=== PATIENT | male | born 1970 | race Two or more races ===

== ENCOUNTER 2021-03-10 07:35 | Outpatient (REF) | payer OTHER, SELFPAY ==
[2021-03-10 08:16] LABS: Basophils Percent Auto 0.1 % (0-2); Eosinophils Percent Auto 0.1 % (0-4); Hematocrit 41.7 % (42-52); Hemoglobin 13.6 g/dl (14.0-18.0); Imm Gran Abs Auto 0.11 X10*3/uL (0.00-0.03); Imm Gran Pct Auto 0.6 % (0.0-0.4); Lymphocytes Percent Auto 17.1 % (20-40); MANUAL DIFF FLAG SCAN; Mean Corpuscular HGB Conc 32.6 g/dl (31.0-36.0); Mean Corpuscular Hemoglobin 26.3 pg (27.0-33.0); Mean Corpuscular Volume 80.5 fL (80-98); Mean Platelet Volume 9.6 fL (9.4-12.4); Monocytes Absolute Auto 1.7 X10*3/uL (0.1-1.2); Monocytes Percent Auto 9.4 % (2-11); Neutrophils Percent Auto 72.7 % (45-73); Platelet Count 347 X10*3/uL (160-400); Red Blood Count 5.18 X10*6/uL (4.60-5.80); Red Cell Distribution Width 12.8 % (11.0-16.0); SCAN SMEAR FLAG 1; White Blood Count 17.8 X10*3/uL (4.8-10.8)
[2021-03-10 08:37] LABS: SLIDE REVIEW VERIFIED
[2021-03-10 08:47] LABS: Creatinine Urine 157.68 mg/dL; Microalbum/Creatinine Ratio Ur 20.2 ug/mg cr
[2021-03-10 08:56] LABS: Alanine Aminotransferase 26 U/L (0-40); Albumin Level 4.5 g/dL (3.5-5.0); Alkaline Phosphatase 160 U/L (39-117); Anion Gap 16 (12-20); Aspartate Amino Transferase 13 U/L (5-37); Bilirubin Total 0.3 mg/dL (0.0-1.0); Blood Urea Nitrogen 10 mg/dL (9-16); Carbon Dioxide 22 mmol/L (22-29); Chloride 104 mmol/L (96-108); Cholesterol 155 mg/dL; Estimated Glomerular Filt Rate > 60; Glucose Fasting 350 mg/dL (60-99); HDL Cholesterol 35 mg/dL; LDL Cholesterol Calculated 79 mg/dl; Potassium 3.9 mmol/L (3.3-5.1); Sodium 138 mmol/L (135-145); Total Protein 7.8 g/dL (6.5-8.0); Triglycerides 209 mg/dL
[2021-03-10 09:01] LABS: Estimated Average Glucose 197 mg/dL; Hemoglobin A1c % 8.5 %
[2021-03-10 09:16] LABS: Thyroid Stimulating Hormone 0.74 uIU/mL (0.32-4.0)
== END 2021-03-10 07:36 | disposition home or self-care (01) ==
LOC: HO.LAB 07:35
PROVIDERS: PCP Internal Medicine; Visit Provider Internal Medicine
DX: Z00.00 Encounter for general adult medical examination without abnormal findings (principal); E03.9 Hypothyroidism, unspecified; E11.9 Type 2 diabetes mellitus without complications
CPT/HCPCS: 36415; 80053; 80061; 82043; 83036; 84443; 85025

== ENCOUNTER 2021-03-17 07:32 | Outpatient (REF) | payer OTHER, SELFPAY ==
[2021-03-17 07:47] LABS: MANUAL DIFF FLAG NO
[2021-03-17 08:06] LABS: Basophils Percent Auto 0.1 % (0-2); Eosinophils Percent Auto 0.1 % (0-4); Hematocrit 44.5 % (42.0-52.0); Hemoglobin 14.4 g/dl (14.0-18.0); Imm Gran Abs Auto 0.21 X10*3/uL (0.00-0.03); Imm Gran Pct Auto 1.1 % (0.0-0.4); Lymphocytes Absolute Auto 3.9 X10*3/uL (1.2-4.9); Lymphocytes Percent Auto 20.5 % (20-40); Mean Corpuscular HGB Conc 32.4 g/dl (31.0-36.0); Mean Corpuscular Hemoglobin 26.2 pg (27.0-33.0); Mean Corpuscular Volume 81.1 fL (80.0-98.0); Mean Platelet Volume 9.6 fL (9.4-12.4); Monocytes Absolute Auto 1.4 X10*3/uL (0.1-1.2); Monocytes Percent Auto 7.6 % (2-11); Neutrophils Absolute Auto 13.22 x10*3/uL (2.0-8.3); Neutrophils Percent Auto 70.6 % (45-73); Platelet Count 391 X10*3/uL (160-400); Red Blood Count 5.49 X10*6/uL (4.60-5.80); Red Cell Distribution Width 12.8 % (11.0-16.0); White Blood Count 18.7 X10*3/uL (4.8-10.8)
[2021-03-17 08:38] LABS: Estimated Average Glucose 209 mg/dL; Hemoglobin A1c % 8.9 %
[2021-03-17 08:44] LABS: Cholesterol 167 mg/dL; HDL Cholesterol 42 mg/dL; LDL Cholesterol Calculated 70 mg/dl; Triglycerides 279 mg/dL
== END 2021-03-17 07:33 | disposition home or self-care (01) ==
LOC: HO.LAB 07:32
PROVIDERS: PCP Internal Medicine; Visit Provider Internal Medicine
DX: Z00.00 Encounter for general adult medical examination without abnormal findings (principal); E11.9 Type 2 diabetes mellitus without complications
CPT/HCPCS: 36415; 80061; 83036; 85025

== ENCOUNTER → 2021-07-16 13:46 | Outpatient (BNVA) | payer OTHER, SELFPAY | PROVIDERS: PCP Internal Medicine; Referring Provider Internal Medicine; Visit Provider Internal Medicine | DX: I63.9 Cerebral infarction, unspecified (principal) | CPT/HCPCS: 93005 ==

== ENCOUNTER 2021-08-13 06:33 | Day surgery (SDC) | payer OTHER, SELFPAY ==
--- NOTE | 2021-08-12 09:25 | HO.ANESPROP2 ---
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 Mother No problems noted. Paternal Grandmother Diabetes Surgical History Surgical History H/O hernia repair H/O left knee surgery History of vasectomy Social History Social History Household Members: Spouse Housing: House Alcohol intake: former Patient Tobacco Use Status: Never used Tobacco e-Cigarette/Vaping Use: Never Used Second Hand Smoke Exposure: No Use of substances other than those prescribed or required for medical reasons: Yes Substance Use Frequency: Occasionally Are you DNR?: No Advance Directives: No Advance Directives Information Provided: Yes Advance Directives on File: No service: No Current occupational status: unemployed Meds Allergies Allergy/AdvReac Type Severity Reaction Status Date / Time No Known Allergies Allergy Verified 08/07/21 12:06 Home Medications Medication Instructions Recorded Confirmed Last Taken Type clopidogrel 75 mg tablet 75 mg PO DAILY 07/16/21 08/07/21 Unknown History Exam Exam Date and Time: August 12, 2021 0925 Pertinent Lab Results Pertinent Lab Results: Laboratory Tests 03/10/21 04/21/21 07:48 13:39 WBC 11.6 H Hgb 13.4 L Hct 41.2 L Plt Count 310 Sodium 138 Potassium 3.9 Chloride 104 Carbon Dioxide 22 BUN 10 Creatinine 1.08 Narrative Narrative: EKG 07/2021 sinus rhythm at 92/Min; no significant ST-T changes and otherwise unremarkable Assessment and Plan Assessment Anesthesia Assessment: Chart Reviewed Documented by User: Theresa Bean MD 08/13/21 07:48 PMFSH Past Medical History Medical History CVA (cerebral vascular accident) Diabetes mellitus Dyslipidemia Migraines Obesity Type 2 diabetes mellitus with obesity Family History Family History Father No problems noted. Mother No problems noted. Paternal Grandmother Diabetes Surgical History Surgical History H/O hernia repair H/O left knee surgery History of vasectomy History of Problems with Anesthesia: No Social History Social History Household Members: Spouse Housing: House Alcohol intake: former Patient Tobacco Use Status: Never used Tobacco e-Cigarette/Vaping Use: Never Used Second Hand Smoke Exposure: No Use of substances other than those prescribed or required for medical reasons: Yes Substance Use Frequency: Occasionally Are you DNR?: No Advance Directives: No Advance Directives Information Provided: Yes Advance Directives on File: No service: No Current occupational status: unemployed Meds Allergies Allergy/AdvReac Type Severity Reaction Status Date / Time No Known Allergies Allergy Verified 08/07/21 12:06 Home Medications Medication Instructions Recorded Confirmed Last Taken Type clopidogrel 75 mg tablet 75 mg PO DAILY 07/16/21 08/07/21 Unknown History Exam Airway Mallampati Class: II TM Dist: >3cm Neck ROM: Full Loose/Missing/Broken Teeth: No Heart: RRR Lungs: CTA Assessment and Plan Assessment Anesthesia Assessment: Anesthesia Plan Discussed Final Anesthetic Review History of Problems with Anesthesia: No NPO: Yes ASA Class: III Final Preanesthetic Review: Meds/Allgs Chart Reviewed, Consent Obtained/Reviewed and Anes Risks/Benef Reviewed Patient Risk: Intermediate Procedure Risk: Low Anesthetic Plan Anesthetic Plan: MAC: Disposition: Standard PACU
[2021-08-13 06:52] VITALS: BMI 30.7
[2021-08-13 06:53] VITALS: BP 137/96; PULSE 75; RESP 16; TEMP 36.3; O2SAT 97
[2021-08-13 07:01] LABS: Glucose, Whole Blood 157 mg/dL (60-115)
[2021-08-13] MEDS: Lactated Ringers 1,000 ML 100 ML IVCONT (07:36)
--- NOTE | 2021-08-13 07:49 | CA_ITS ---
Transesophageal Echocardiogram Patient (Last, First, Middle): Washington Alves, Gender: Male Date of : 1970 Age: 50 Procedure Date: 08/13/2021 Procedure Type: Transesophageal Echocardiogram Location: OR Height: 172.72 cm Weight: 91.63 kg BSA: 2.05 m2 Heart Rate: bpm BP: 137 / 96 mmHg [employer]: SARA Referring MD: Torrey Camarillo MD Symptoms: I63.9 - Cerebral infarction, unspecified Conclusion: ??? There is no evidence of interatrial shunt by color Doppler and contrast. ??? Visualized portions of descending thoracic aorta, arch, show mild plaque. ??? No cardiac source of emboli identified. Findings Left Ventricle Normal left ventricular cavity size. The left ventricular systolic function is normal. The visually estimated ejection fraction is between 55-60%. There is no evidence of regional wall motion abnormalities. Right Ventricle There is normal right ventricular systolic function. Atria There is no evidence of interatrial shunt by color Doppler and contrast. Bubble study was performed x 3; including with valsalva. Left atrial appendage was not visualized well in spite of numerous attempts. Seems somewhat small in size. Based on the available images, no thrombus noted. Aortic Valve There is a normal trileaflet aortic valve. There is no aortic valve stenosis. There is trace (trivial) aortic valve regurgitation. Mitral Valve The mitral valve appears normal. There is trace mitral valve regurgitation. There is no mitral valve stenosis. Pulmonic Valve The pulmonic valve was not well visualized. Tricuspid Valve Normal tricuspid valve structure. There is trace tricuspid valve regurgitation. Great Vessels The aortic annulus, sinuses of valsalva, sino tubular ridge, and asc aorta are normal in size. Visualized portions of descending thoracic aorta, arch show mild plaque. Pericardium/Pleural Prominent epicardial adipose tissue noted. Prior Study Comparison No prior study available for comparison. Updated by Torrey Camarillo on 04:23 PM with Status of Final Torrey Camarillo MD electronically signed on 08/13/2021 4:23:54 PM with status of Final
--- NOTE | 2021-08-13 08:02 | MHC.SHP ---
Pre-Procedural Eval Section A Date of Service: 08/13/21 The patient is an INPATIENT: No Section B Chief Complaint: cerebral infarction Allergies: Allergies Allergy/AdvReac Type Severity Reaction Status Date / Time No Known Allergies Allergy Verified 08/07/21 12:06 Plan I have reviewed the history and physical and performed a pertinent physical examination on my patient. No changes have occurred unless specified.
[2021-08-13 08:46] VITALS: BP 149/79; PULSE 83; RESP 20; TEMP 36.2; O2SAT 98
[2021-08-13 08:51] VITALS: BP 136/85; PULSE 80; RESP 20; O2SAT 95
[2021-08-13 08:56] VITALS: BP 158/87; PULSE 80; RESP 18; O2SAT 95
== END 2021-08-13 09:32 | disposition home or self-care (01) ==
PROVIDERS: PCP Internal Medicine; Visit Provider Internal Medicine
PROC: (CPT 93312; principal; 2021-08-13 08:00)
DX: I63.9 Cerebral infarction, unspecified (principal); E78.5 Hyperlipidemia, unspecified; E11.9 Type 2 diabetes mellitus without complications; E66.9 Obesity, unspecified; Z68.32 Body mass index [BMI] 32.0-32.9, adult; Z79.4 Long term (current) use of insulin; Z79.899 Other long term (current) drug therapy
CPT/HCPCS: 93312; 82947

== ENCOUNTER → 2021-08-17 19:29 | Outpatient (REF) | payer OTHER, SELFPAY | LOC: HO.CARD 19:29 | PROVIDERS: Visit Provider Internal Medicine | DX: Z13.89 Encounter for screening for other disorder (principal) ==

== ENCOUNTER → 2021-08-24 13:37 | Outpatient (REF) | payer OTHER, SELFPAY ==
--- NOTE | 2021-08-24 13:46 | HM_ITS ---
REQUESTING PROVIDER: Dr. Camarillo. REASON FOR TEST: Paroxysmal atrial fibrillation. Hookup date was 08/24/2021 to 09/23/2021. FINDINGS: Patient was hooked up to cardiac event monitor for 30 days. Baseline rhythm was normal. Sinus rhythm with average heart rate varying from 65 beats per minute to 110 beats per minute. There were no episodes of atrial fibrillation noted. There were no significant other ectopy or arrhythmia noted. The patient reported multiple events including chest pain, dizziness, shortness of breath, all of which correlated with sinus rhythm. CONCLUSION: 1. Event monitor reported a baseline normal sinus rhythm with no significant arrhythmias. 2. Patient reported multiple symptoms correlated with sinus rhythm. Omid Beckham MD NRS/MODL / [id number]
== END ==
LOC: HO.CARD 13:37
PROVIDERS: Visit Provider Internal Medicine
DX: I48.0 Paroxysmal atrial fibrillation (principal); I63.9 Cerebral infarction, unspecified
CPT/HCPCS: 93270

== ENCOUNTER 2021-11-04 10:46 | Outpatient (REF) | payer OTHER, SELFPAY ==
--- NOTE | 2021-11-04 09:42 | MHC.SHP ---
Pre-Procedural Eval Section A Date of Service: 11/04/21 The patient is an INPATIENT: No Changes since office visit: Yes Patient answered all questions; No Cold of Flu in the past 2 weeks, No New Medical Problems and No Changes in Medication The History & Physical has been completed within 30 days and I have reviewed it.: Yes Section B Chief Complaint: Cerebral infarction, unspecified Allergies: Allergies Allergy/AdvReac Type Severity Reaction Status Date / Time No Known Allergies Allergy Verified 10/27/21 14:41 Plan I have reviewed the history and physical and performed a pertinent physical examination on my patient. No changes have occurred unless specified.
[2021-11-04 12:00] VITALS: BP 145/85; PULSE 85; RESP 16; TEMP 36.3; O2SAT 98
[2021-11-04 12:03] VITALS: BMI 32.1
--- NOTE | 2021-11-04 12:39 | PM.OP ---
Brief Operative Note Date of Service: 11/04/21 Pre-op diagnosis: Cryptogenic stroke Post-op diagnosis: same Procedure: Implantation of loop recorder Implants: [place] implantable loop recorder, serial number [id number] After obtaining full informed consent patient was brought to the minor surgery suite. Patient was then laid in the supine position on the operating table. Patient's precordial area was then prepped and draped in a sterile fashion. Patient was then given 2% lidocaine with epinephrine intradermally and subcutaneously. A [place] implantable loop recorder was then placed in the subcutaneous space using Seldinger technique. Measured R-wave at 0.41 mV The wound was then closed with help of Steri-Strips and a pressure dressing then applied Surgeon: Omid Beckham MD Anesthesia: local Was an Cable Installation Manager used for this Procedure?: No Estimated blood loss (mL): 4 Pathology: none sent Condition: stable Disposition: same day
[2021-11-04 12:42] VITALS: BP 134/82; PULSE 90; RESP 16; O2SAT 98
== END 2021-11-04 10:47 | disposition home or self-care (01) ==
LOC: HO.MS 10:46
PROVIDERS: Visit Provider Internal Medicine Cardiovascular Disease
PROC: (CPT 33285; principal; 2021-11-04 12:10)
DX: I63.9 Cerebral infarction, unspecified (principal)
CPT/HCPCS: 33285; C1764

== ENCOUNTER 2022-04-26 11:29 | Outpatient (REF) | payer OTHER, SELFPAY ==
[2022-04-26 11:40] LABS: MANUAL DIFF FLAG NO
[2022-04-26 11:45] LABS: Basophils Percent Auto 0.2 % (0-2); Eosinophils Absolute Auto 0.1 X10*3/uL (0.0-0.4); Eosinophils Percent Auto 0.6 % (0-4); Hematocrit 42.3 % (42.0-52.0); Hemoglobin 13.5 g/dl (14.0-18.0); Imm Gran Abs Auto 0.07 X10*3/uL (0.00-0.03); Imm Gran Pct Auto 0.6 % (0.0-0.4); Lymphocytes Absolute Auto 2.7 X10*3/uL (1.2-4.9); Lymphocytes Percent Auto 22.1 % (20-40); Mean Corpuscular HGB Conc 31.9 g/dl (31.0-36.0); Mean Corpuscular Hemoglobin 25.5 pg (27.0-33.0); Mean Corpuscular Volume 79.8 fL (80.0-98.0); Mean Platelet Volume 9.5 fL (9.4-12.4); Monocytes Percent Auto 8.5 % (2-11); Neutrophils Absolute Auto 8.3 x10*3/uL (2.0-8.3); Platelet Count 288 X10*3/uL (160-400); Red Cell Distribution Width 12.8 % (11.0-16.0); White Blood Count 12.2 X10*3/uL (4.8-10.8)
[2022-04-26 12:34] LABS: Alanine Aminotransferase 29 U/L (0-40); Albumin Level 4.2 g/dL (3.5-5.0); Alkaline Phosphatase 181 U/L (39-117); Anion Gap 14 (12-20); Aspartate Amino Transferase 14 U/L (5-37); Bilirubin Total 0.4 mg/dL (0.0-1.0); Blood Urea Nitrogen 15 mg/dL (9-16); Calcium 9.4 mg/dL (8.4-10.2); Carbon Dioxide 23 mmol/L (22-29); Chloride 106 mmol/L (96-108); Estimated Glomerular Filt Rate > 60; Glucose Random 364 mg/dL (60-115); Potassium 4.6 mmol/L (3.3-5.1); Sodium 138 mmol/L (135-145); Total Protein 7.1 g/dL (6.5-8.0)
== END 2022-04-26 11:30 | disposition home or self-care (01) ==
LOC: HO.LAB 11:29
PROVIDERS: PCP Internal Medicine; Visit Provider Internal Medicine
DX: D72.829 Elevated white blood cell count, unspecified (principal)
CPT/HCPCS: 36415; 80053; 85025

== ENCOUNTER → 2022-11-24 23:59 | Outpatient (BNV) | payer OTHER, SELFPAY ==
--- NOTE | 2022-12-06 15:49 | MHC.OFFVIS ---
Intake Intake Visit Reasons: Remote ILR Check- [facility] Allergies No Known Allergies Allergy (Verified 11/19/21 15:29) PFSH Medical History CVA (cerebral vascular accident) Diabetes mellitus Dyslipidemia Migraines Obesity Type 2 diabetes mellitus with obesity Surgical History H/O hernia repair H/O left knee surgery History of vasectomy Family History Father No problems noted. Mother No problems noted. Paternal Grandmother Diabetes Social History Household Members: Spouse Housing: House Alcohol intake: former Patient Tobacco Use Status: Never used Tobacco e-Cigarette/Vaping Use: Never Used Second Hand Smoke Exposure: No service: No Current occupational status: unemployed Office Procedures Cardiac Device Check Cardiac Device Check Details: Date of service 11/24/2022; in the current monitoring period, there is no evidence of atrial fibrillation. No atrial fibrilllation during lifetime. [id number] Cardiac Interrogation, subcut cardiac rhythm monitor Procedure code (CPT) selection complete Assessment & Plan Assessment & Plan (1) Embolic stroke: Code(s): I63.9 - Cerebral infarction, unspecified Coding Level of Care Code Procedure Only Diagnoses Embolic stroke I63.9 CPT Codes Cardiac Device Check - Cardiac Device 16: [id number] Cardiac Interrogation, subcut cardiac rhythm monitor ([id number])
== END ==
PROVIDERS: PCP Internal Medicine; Visit Provider Internal Medicine
DX: I63.9 Cerebral infarction, unspecified (principal); Z95.818 Presence of other cardiac implants and grafts
CPT/HCPCS: 93298

== ENCOUNTER → 2022-12-26 23:59 | Outpatient (BNV) | payer OTHER, SELFPAY ==
--- NOTE | 2023-01-02 18:38 | MHC.OFFVIS ---
Intake Intake Visit Reasons: Remote ILR check- [facility] Allergies No Known Allergies Allergy (Verified 11/19/21 15:29) PFSH Medical History CVA (cerebral vascular accident) Diabetes mellitus Dyslipidemia Migraines Obesity Type 2 diabetes mellitus with obesity Surgical History H/O hernia repair H/O left knee surgery History of vasectomy Family History Father No problems noted. Mother No problems noted. Paternal Grandmother Diabetes Social History Household Members: Spouse Housing: House Alcohol intake: former Patient Tobacco Use Status: Never used Tobacco e-Cigarette/Vaping Use: Never Used Second Hand Smoke Exposure: No service: No Current occupational status: unemployed Office Procedures Cardiac Device Check Cardiac Device Check Details: Date of service 12/26/2022; in the current monitoring period, there is no evidence of atrial fibrillation. No atrial fibrilllation during lifetime. [id number] Cardiac Interrogation, subcut cardiac rhythm monitor Procedure code (CPT) selection complete Assessment & Plan Assessment & Plan (1) Embolic stroke: Code(s): I63.9 - Cerebral infarction, unspecified Coding Level of Care Code Procedure Only Diagnoses Embolic stroke I63.9 CPT Codes Cardiac Device Check - Cardiac Device 16: [id number] Cardiac Interrogation, subcut cardiac rhythm monitor ([id number])
== END ==
PROVIDERS: PCP Internal Medicine; Visit Provider Internal Medicine
DX: I63.9 Cerebral infarction, unspecified (principal)
CPT/HCPCS: 93298

== ENCOUNTER 2023-01-04 14:13 | Outpatient (AMB) | payer OTHER, SELFPAY ==
--- NOTE | 2023-01-04 14:15 | A.OFFPC_ITS ---
Vital Signs 01/04/23 14:17 Height 5 ft 8 in Weight 215 lb 6 oz BMI 32.7 BP 120/70 Blood Pressure Location Lt brachial Position Sitting Pulse 100 Pulse Source Pulse Oximeter Pulse Oximetry (%) 95 Oxygen Delivery Method Room Air Intake Visit Reasons: re-establish care Intake Note: Patient is here today to re-establish care [employer] Internship Required: No Manager Process: Not Required per policy Accompanied by: Self / Same As Patient Allergies No Known Allergies Allergy (Verified 01/04/23 14:16) Medication List - Last Reconciled 01/05/23 by Diego Howell MD atorvastatin 80 mg PO DAILY clopidogrel 75 mg PO DAILY dulaglutide (Trulicity) 0.75 mg (0.5 mL) subcut QWEEK insulin degludec (Tresiba FlexTouch U-100 insulin) 50 units (0.5 mL) subcut BEDTIME miscellaneous medical supply BD Pen Needle [place] U/F 32G X 4 MM omeprazole 20 mg PO BID Tobacco use date assessed: 01/04/23 Dental Screening Dental Screen Date: 01/04/23 Did you have a dental visit in the last 12 months?: No Did you have a dental problem in the last 6 months where you did not have access to dental care?: No Was dental information given to patient?: No HPI re-establish care HPI Details dm hyperlipidemiaand gerd on rx; doing [facility] Medical History CVA (cerebral vascular accident) Diabetes mellitus Dyslipidemia Migraines Obesity Type 2 diabetes mellitus with obesity Surgical History H/O hernia repair H/O left knee surgery History of vasectomy Family History Father No problems noted. Mother No problems noted. Paternal Grandmother Diabetes Social History (Updated 01/04/23 @ 14:19 by NADIYA Agarwal) Household Members: Spouse Housing: House Alcohol intake: current Alcohol intake frequency: a few times a week Patient Tobacco Use Status: Never used Tobacco e-Cigarette/Vaping Use: Never Used Second Hand Smoke Exposure: No service: No Current occupational status: unemployed Cognitive needs: No Hearing needs: No Vision needs: Yes (reading glasses) Questionnaire PHQ-9 Over the last 2 weeks, how often have you been bothered by any of the following problems? 1. Little interest or pleasure in doing things: not at all 2. Feeling down, depressed, or hopeless: not at all 3. Trouble falling or staying asleep, or sleeping too much: not at all 4. Feeling tired or having little energy: not at all 5. Poor appetite or overeating: not at all 6. Feeling bad about yourself - or that you are a failure or have let yourself or your family down: not at all 7. Trouble concentrating on things, such as reading the newspaper or watching television: not at all 8. Moving or speaking so slowly that other people could have noticed. Or the opposite - being so fidgety or restless that you have been moving around a lot more than usual: not at all 9. Thoughts that you would be better off or of hurting yourself in some way: not at all Total score: 0 Depression Screening Interpretation: Negative 23013 - PHQ-9 Billing: Yes Source: Developed by Drs. Vincenzo Velasquez, Sarah Lemus, Broderick Lundy and colleagues, with an educational garfield from [employer]. Thrive Questionnaire Date Thrive assessed: 01/04/23 I am a: Patient What is your living situation today?: I have a steady place to live Within the past 12 months, did the food you bought not last and you didn't have the money to get more?: Never true Within the past 12 months, did you worry whether your food would run out before you got money to buy more?: Never true Do you have trouble paying for medicines?: No Do you have trouble getting transportation to medical appointments?: No Do you have trouble paying your heating and electricity bill?: No Do you have trouble taking care of your child, family member or friend?: No Do you have trouble with day-to-day activities such as bathing, preparing meals, shopping, managing finances, etc.?: No Are you currently unemployed and looking for a job?: No Are you interested in more education?: No Currently or been in a relationship where the following occur: no concerns reported AUDIT C Alcohol Use Questionnaire (AUDIT-C) 1. How often do you have a drink containing alcohol?: Monthly or less 2. How many drinks containing alcohol do you have on a typical day when you are drinking?: 1 or 2 Total Score: 1 Score Reviewed/Action Taken: Yes JONAH-7 AMB Questionnaire JONAH-7 Date JONAH - 7 assessed: 01/04/23 Feeling nervous, anxious, or on edge: 0 = Not at all Not being able to stop or control worryin = Not at all Worrying too much about different things: 0 = Not at all Trouble relaxin = Not at all Being so restless that it is hard to sit still: 0 = Not at all Becoming easily annoyed or irritable: 0 = Not at all Feeling afraid as if something awful might happen: 0 = Not at all Total JONAH-7 score (0-4 normal; 5-9 mild; 10-14 moderate; 15-21 severe): 0 Source: Developed by Drs. Vincenzo Velasquez, Sarah Lemus, Broderick Lundy and colleagues, with an educational garfield from [employer]. JONAH-7 Assessment Billing JONAH-7 Assessment Tool: JONAH-7 Assessment 39983 Review of Systems Const Denies chills, Denies headache(s) and Denies weight loss ENT Reports Normal hearing present and Denies headache(s) Card Denies chest pain, Denies syncope, Denies irregular heart rhythm and Denies dyspnea Resp Denies chest congestion, Denies cough and Denies dyspnea GI Denies abdominal pain, Denies change in stool character, Denies nausea and Denies vomiting Musc Denies deformity and Denies joint swelling Neuro Reports Normal hearing present, Denies syncope and Denies headache(s) Physical exam (Primary Care) Vital Signs: Last Vital Signs Pulse 100 01/04/23 14:17 BP 120/70 01/04/23 14:17 Pulse Ox 95 01/04/23 14:17 Oxygen Delivery Method Room Air 01/04/23 14:17 BMI result Body Mass Index 32.7 obesity BMI Assessment/Plan discussion: High BMI High, discussed plan: lifestyle, weight reduction, dietary and physical activity Tobacco/Smoking Status: Tobacco use Status Tobacco use date assessed 01/04/23 01/04/23 14:21 Patient Tobacco Use Status Never used Tobacco 01/04/23 14:21 e-Cigarette/Vaping Use Never Used 01/04/23 14:21 PHQ-9: PHQ-9 Score PHQ-9: Total score 0 01/04/23 14:21 Depression Screening Interpretation: Negative Thrive Assessment: Date of Thrive Assessment Date Thrive assessed 01/04/23 01/04/23 14:21 Currently or been in a relationship where the following occur: no concerns reported Const General: cooperative, healthy appearing and no acute distress HENMT Head: Yes normocephalic and Yes atraumatic Eyes General: appearance normal, both eyes and all related structures Neck Neck: Yes full ROM and Yes no lymphadenopathy Resp Effort & Inspection: normal respiratory effort Auscultation: clear to auscultation bilaterally Percussion: percussion normal Cardio Jugular venous distension: no JVD Palpation: normal PMI Rate: regular rate Rhythm: regular rhythm Heart sounds: S1 normal heart sound present and S2 normal heart sound present GI Inspection: Yes normal to inspection Palpation (GI): No hepatosplenomegaly present Auscultation: normal bowel sounds Skin Lesions: no lesions Rashes: no rashes Neuro Cranial nerves: Yes Normal hearing present Extrem General: Yes no clubbing, cyanosis or edema Assessment and Plan Assessment & Plan (1) Type 2 diabetes mellitus with obesity: Code(s): E11.69 - Type 2 diabetes mellitus with other specified complication; E66.9 - Obesity, unspecified Plan: stable; do labs (2) Hyperlipidemia: Code(s): E78.5 - Hyperlipidemia, unspecified Plan: stable ;same rx (3) Chronic GERD: Code(s): K21.9 - Gastro-esophageal reflux disease without esophagitis Plan: stable; same rx Orders: Orders Comprehensive [place]. Panel Fast Today N28.9 - Disorder of kidney and ureter, unspecified Hemoglobin A1c Today R73.9 - Hyperglycemia, unspecified Lipid Panel Today E78.5 - Hyperlipidemia, unspecified Thyroid Stimulating Hormone Today E03.9 - Hypothyroidism, unspecified Microalbumin, Random (w Creat) Today E11.69 - Type 2 diabetes mellitus with other specified complication, E66.01 - Morbid (severe) obesity due to excess calories Complete Blood Count Auto Diff Today D64.9 - Anemia, unspecified Medications: Refilled dulaglutide (Trulicity) 0.75 mg (0.5 mL) subcut QWEEK 2 mL 8RF insulin degludec (Tresiba FlexTouch U-100 insulin) 50 units (0.5 mL) subcut BEDTIME 15 mL 0RF Coding Level of Care Code Est Pt Level 4 (29005) Diagnoses Type 2 diabetes mellitus with obesity E11.69; E66.9 Hyperlipidemia E78.5 Chronic GERD K21.9 Additional Codes JONAH-7 Assessment Billing - JONAH-7 Assessment Tool: JONAH-7 Assessment 03619 ([id number])
[2023-01-04 14:17] VITALS: BP 120/70; PULSE 100; O2SAT 95; BMI 32.7
== END 2023-01-04 15:27 | disposition home or self-care (01) ==
PROVIDERS: PCP Internal Medicine; Visit Provider Internal Medicine
DX: E11.69 Type 2 diabetes mellitus with other specified complication (principal); E66.9 Obesity, unspecified; K21.9 Gastro-esophageal reflux disease without esophagitis; Z68.32 Body mass index [BMI] 32.0-32.9, adult; E78.5 Hyperlipidemia, unspecified
CPT/HCPCS: 99214

== ENCOUNTER 2023-01-10 06:01 | Outpatient (REF) | payer OTHER, SELFPAY ==
[2023-01-10 06:21] LABS: MANUAL DIFF FLAG NO
[2023-01-10 08:20] LABS: Basophils Percent Auto 0.3 % (0-2); Eosinophils Absolute Auto 0.1 X10*3/uL (0.0-0.4); Eosinophils Percent Auto 0.9 % (0-4); Hematocrit 42.3 % (42.0-52.0); Hemoglobin 12.9 g/dl (14.0-18.0); Imm Gran Abs Auto 0.07 X10*3/uL (0.00-0.03); Imm Gran Pct Auto 0.6 % (0.0-0.4); Lymphocytes Absolute Auto 3.7 X10*3/uL (1.2-4.9); Lymphocytes Percent Auto 33.4 % (20-40); Mean Corpuscular HGB Conc 30.5 g/dl (31.0-36.0); Mean Corpuscular Hemoglobin 25.3 pg (27.0-33.0); Mean Corpuscular Volume 82.9 fL (80.0-98.0); Mean Platelet Volume 10.2 fL (9.4-12.4); Monocytes Absolute Auto 1.1 X10*3/uL (0.1-1.2); Neutrophils Absolute Auto 6.1 x10*3/uL (2.0-8.3); Neutrophils Percent Auto 54.8 % (45-73); Platelet Count 284 X10*3/uL (160-400)
[2023-01-10 08:26] LABS: Estimated Average Glucose 183 mg/dL
[2023-01-10 09:09] LABS: Alanine Aminotransferase 35 U/L (0-40); Albumin Level 3.9 g/dL (3.5-5.0); Alkaline Phosphatase 133 U/L (39-117); Anion Gap 11 (12-20); Aspartate Amino Transferase 15 U/L (5-37); Bilirubin Total 0.3 mg/dL (0.0-1.0); Blood Urea Nitrogen 15 mg/dL (9-16); Calcium 9.4 mg/dL (8.4-10.2); Carbon Dioxide 25 mmol/L (22-29); Chloride 108 mmol/L (96-108); Cholesterol 151 mg/dL (<200); Estimated Glomerular Filt Rate > 60; Glucose Fasting 214 mg/dL (60-99); HDL Cholesterol 29 mg/dL (>40); LDL Cholesterol Calculated 43 mg/dL (<100); Potassium 4.1 mmol/L (3.3-5.1); Sodium 140 mmol/L (135-145); Thyroid Stimulating Hormone 1.74 uIU/mL (0.32-4.0); Total Protein 7.3 g/dL (6.5-8.0); Triglycerides 396 mg/dL (<150)
[2023-01-10 11:04] LABS: Creatinine Urine 230.58 mg/dL; Microalbum/Creatinine Ratio Ur 4.7 ug/mg cr (<30)
== END 2023-01-10 06:02 | disposition home or self-care (01) ==
LOC: HO.LAB 06:01
PROVIDERS: PCP Internal Medicine; Visit Provider Internal Medicine
DX: E11.69 Type 2 diabetes mellitus with other specified complication (principal); E11.65 Type 2 diabetes mellitus with hyperglycemia; E03.9 Hypothyroidism, unspecified; E66.01 Morbid (severe) obesity due to excess calories; E78.5 Hyperlipidemia, unspecified; D64.9 Anemia, unspecified; N28.9 Disorder of kidney and ureter, unspecified
CPT/HCPCS: 36415; 80053; 80061; 82043; 83036; 84443; 85025

== ENCOUNTER → 2023-01-25 23:59 | Outpatient (BNV) | payer OTHER, SELFPAY ==
--- NOTE | 2023-01-29 14:26 | MHC.OFFVIS ---
Intake Intake Visit Reasons: Remote ILR Check- [facility] Allergies No Known Allergies Allergy (Verified 01/04/23 14:16) PFS Medical History CVA (cerebral vascular accident) Diabetes mellitus Dyslipidemia Migraines Obesity Type 2 diabetes mellitus with obesity Surgical History H/O hernia repair H/O left knee surgery History of vasectomy Family History Father No problems noted. Mother No problems noted. Paternal Grandmother Diabetes Social History (Updated 01/04/23 @ 14:19 by NADIYA Agarwal) Household Members: Spouse Housing: House Alcohol intake: current Alcohol intake frequency: a few times a week Patient Tobacco Use Status: Never used Tobacco e-Cigarette/Vaping Use: Never Used Second Hand Smoke Exposure: No service: No Current occupational status: unemployed Cognitive needs: No Hearing needs: No Vision needs: Yes (reading glasses) Office Procedures Cardiac Device Check Cardiac Device Check Details: Date of service 01/25/2023; in the current monitoring period, there is no evidence of atrial fibrillation. No atrial fibrilllation during lifetime. [id number] Cardiac Interrogation, subcut cardiac rhythm monitor Procedure code (CPT) selection complete Assessment & Plan Assessment & Plan (1) Embolic stroke: Code(s): I63.9 - Cerebral infarction, unspecified Coding Level of Care Code Procedure Only Diagnoses Embolic stroke I63.9 CPT Codes Cardiac Device Check - Cardiac Device 16: [id number] Cardiac Interrogation, subcut cardiac rhythm monitor ([id number])
== END ==
PROVIDERS: PCP Internal Medicine; Visit Provider Internal Medicine
DX: I63.9 Cerebral infarction, unspecified (principal)
CPT/HCPCS: 93298

== ENCOUNTER 2023-05-17 13:02 | Outpatient (AMB) | payer OTHER, SELFPAY ==
[2023-05-17 13:31] VITALS: BP 110/60; PULSE 83
--- NOTE | 2023-05-17 13:31 | A.OFFVIS_ITS ---
Intake Vital Signs 05/17/23 13:31 Height 5 ft 8 in BP 110/60 Blood Pressure Location Lt brachial Position Sitting Pulse 83 Pulse Source Pulse Oximeter Intake Visit Reasons: follow up w/ device check Intake Note: f/up pt its feeling fine Customer Engagement Analyst Required: No Accompanied by: Spouse Allergies No Known Allergies Allergy (Verified 01/04/23 14:16) Medication List - Last Reconciled 05/17/23 by Michelle Salinas NP-C atorvastatin 80 mg PO DAILY clopidogrel 75 mg PO DAILY dulaglutide (Trulicity) 0.75 mg (0.5 mL) subcut QWEEK insulin degludec (Tresiba FlexTouch U-100 insulin) 50 units (0.5 mL) subcut BEDTIME miscellaneous medical supply BD Pen Needle [place] U/F 32G X 4 MM omeprazole 20 mg PO BID HPI follow up w/ device check HPI Details [place] is a 52-year-old male with past medical history of diabetes, obesity, CVA who has ILR iin place to evaluate for presence of AFib, who now presents for follow-up. Today he reports that he has been doing well since his last visit. He has no concerning symptoms. On 1 day recently he bit his tongue and his was fearful that this was a sign of another stroke however he had no neurological symptoms of vision changes, speech disturbance, movement or sensory disturbances of his extremities. He denies having heart palpitations. ILR moves around a little and causes discomfort at times. No other chest discomfort, no shortness of breath, presyncope, syncope, PND, orthopnea or edema. He reports good activity tolerance. Takes all meds as directed. [facility] Medical History Dyslipidemia Migraines Obesity Type 2 diabetes mellitus with obesity CVA (cerebral vascular accident) Diabetes mellitus Surgical History H/O left knee surgery H/O hernia repair History of vasectomy Family History Father No problems noted. Mother No problems noted. Paternal Grandmother Diabetes Social History Household Members: Spouse Housing: House Alcohol intake: current Alcohol intake frequency: a few times a week Patient Tobacco Use Status: Never used Tobacco e-Cigarette/Vaping Use: Never Used Second Hand Smoke Exposure: No service: No Current occupational status: unemployed Cognitive needs: No Hearing needs: No Vision needs: Yes (reading glasses) Review of Systems Const All systems reviewed & are unremarkable except as noted in HPI and below Denies chills, Denies fever(s), Denies frequent falls, Denies weakness, Denies weight gain and Denies weight loss ENT Denies dizziness Card Denies chest pain, Denies leg edema, Denies lightheadedness, Denies palpitations, Denies dyspnea and Denies dyspnea on exertion Resp Reports cough, Denies dyspnea and Denies dyspnea on exertion GI Denies hematochezia Musc Denies abnormal gait, Denies muscle weakness, Denies numbness, Denies radiating pain into limb and Denies tingling Neuro Denies abnormal gait, Denies dizziness, Denies frequent falls, Denies numbness, Denies tingling and Denies weakness Endo Denies palpitations Physical Exam Vital Signs: Last Vital Signs Pulse 83 05/17/23 13:31 BP 110/60 05/17/23 13:31 Const General: cooperative, healthy appearing, comfortable and no acute distress Orientation/consciousness: patient oriented x3 Neck Neck: Yes normal visual inspection Resp Effort & Inspection: normal respiratory effort Auscultation: clear to auscultation bilaterally, no crackles, no rales, no rhonchi and no wheezes Cardio Jugular venous distension: no JVD Rate: regular rate Rhythm: regular rhythm Heart sounds: S1 normal heart sound present, S2 normal heart sound present, no murmurs and no rubs Neuro General: patient oriented x3 Extrem General: Yes normal to inspection, No no pedal edema and No calf tenderness Psych Appearance: grossly normal Mental Status: mental status grossly normal Speech and movement: Normal speech and movement present Office Procedures Cardiac Device Check Cardiac Device Check Details: I will our office interrogation done today, [place] device, battery getting low, 1 episode recorded as AF however when reviewed with specialist at [facility] [employer] for jot devices confirmed it is not AFib, undersensing noted. No other alerts. [id number] Cardiac Device Check, subcut cardiac rhythm monitor Procedure code (CPT) selection complete Assessment & Plan Assessment & Plan (1) CVA (cerebral vascular accident): Comment: 2018 Code(s): I63.9 - Cerebral infarction, unspecified Plan: History of CVA 2018. Evaluated at [facility] 07/2020 for difficulty speaking. CTA of the brain and neck reported as being okay. A 48 hour Holter monitor done at [facility] showed only sinus rhythm. MRI of the brain July 2020 showed chronic left frontal and parietal infarcts with acute left basal ganglia infarct. He has been followed by Neurology and is on Plavix. He was seen by Dr. Camarillo 07/2021 and then underwent a transesophageal echo on 08/13 showing EF 55-60%, no regional wall motion abnormalities, bubble study showing no shunt and no thrombus in the left atrial appendage. No cardiac source of the emboli noted. He underwent anr ILR placement on 11/04/2021. Office interrogation today and remote monitoring shows no evidence of true atrial fibrillation. To AFib alerts have come through however strips reviewed b y myself and urban planner as well as [place] ILR specialists confirm no true AFib. Reviewed this with patient. Will continue to monitor device remotely. Will arrange for office follow-up in 6 months. Battery is getting close to the TIA. (2) Implantable loop recorder present: Comment: 11/04/[address] Beckham, left chest Code(s): Z95.818 - Presence of other cardiac implants and grafts Plan: As above (3) Embolic stroke: Code(s): I63.9 - Cerebral infarction, unspecified Plan: As above Plan Time spent on chart review, documentation, interview and assessment Coding Level of Care Code Est Pt Level 3 (09519) Diagnoses CVA (cerebral vascular accident) I63.9 Implantable loop recorder present Z95.818 Embolic stroke I63.9 CPT Codes Cardiac Device Check - Cardiac Device 7: [id number] Cardiac Device Check, subcut cardiac rhythm monitor ([id number]) Time Spent (min) 20
== END 2023-05-17 14:05 | disposition home or self-care (01) ==
PROVIDERS: PCP Internal Medicine; Visit Provider Nurse Practitioner Family
DX: I63.9 Cerebral infarction, unspecified (principal); Z95.818 Presence of other cardiac implants and grafts
CPT/HCPCS: 93285; 99213

== ENCOUNTER → 2023-05-17 13:02 | Outpatient (BNVA) | payer OTHER, SELFPAY | PROVIDERS: PCP Internal Medicine; Visit Provider Nurse Practitioner Family ==

== ENCOUNTER → 2023-05-29 23:59 | Outpatient (BNV) | payer OTHER, SELFPAY ==
--- NOTE | 2023-05-30 19:39 | MHC.OFFVIS ---
Intake Intake Visit Reasons: Remote ILR Check- [facility] Allergies No Known Allergies Allergy (Verified 01/04/23 14:16) PFSH Medical History Dyslipidemia Migraines Obesity Type 2 diabetes mellitus with obesity CVA (cerebral vascular accident) Diabetes mellitus Surgical History H/O left knee surgery H/O hernia repair History of vasectomy Family History Father No problems noted. Mother No problems noted. Paternal Grandmother Diabetes Social History Household Members: Spouse Housing: House Alcohol intake: current Alcohol intake frequency: a few times a week Patient Tobacco Use Status: Never used Tobacco e-Cigarette/Vaping Use: Never Used Second Hand Smoke Exposure: No service: No Current occupational status: unemployed Cognitive needs: No Hearing needs: No Vision needs: Yes (reading glasses) Office Procedures Cardiac Device Check Cardiac Device Check Details: Date of service 05/29/2023; in the current monitoring period, there is no evidence of atrial fibrillation. [id number] Cardiac Interrogation, subcut cardiac rhythm monitor Procedure code (CPT) selection complete Assessment & Plan Assessment & Plan (1) Embolic stroke: Code(s): I63.9 - Cerebral infarction, unspecified Plan x Coding Level of Care Code Procedure Only Diagnoses Embolic stroke I63.9 CPT Codes Cardiac Device Check - Cardiac Device 16: [id number] Cardiac Interrogation, subcut cardiac rhythm monitor ([id number])
== END ==
PROVIDERS: PCP Internal Medicine; Visit Provider Internal Medicine
DX: I63.9 Cerebral infarction, unspecified (principal); Z95.818 Presence of other cardiac implants and grafts
CPT/HCPCS: 93298

== ENCOUNTER 2023-05-31 13:32 | Outpatient (AMB) | payer OTHER, SELFPAY ==
[2023-05-31 13:34] VITALS: BP 136/86; PULSE 120; O2SAT 96; BMI 32.5
--- NOTE | 2023-05-31 13:34 | MHC.PC.OV ---
Vital Signs 05/31/23 13:34 Height 5 ft 8 in Weight 214 lb BMI 32.5 BP 136/86 Blood Pressure Location Lt brachial Position Sitting Pulse 120 H Pulse Source Pulse Oximeter Pulse Oximetry (%) 96 Oxygen Delivery Method Room Air Intake Visit Reasons: Urgent Care F/U- [facility] Fulfillment Coordinator Required: No Reserve Officer: Not Required per policy Accompanied by: Self / Same As Patient Allergies No Known Allergies Allergy (Verified 01/04/23 14:16) Medication List - Last Reconciled 06/01/23 by Diego Howell MD atorvastatin 80 mg PO DAILY clopidogrel 75 mg PO DAILY dulaglutide (Trulicity) 0.75 mg (0.5 mL) subcut QWEEK insulin degludec (Tresiba FlexTouch U-100 insulin) 50 units (0.5 mL) subcut BEDTIME miscellaneous medical supply BD Pen Needle [place] U/F 32G X 4 MM omeprazole 20 mg PO BID Tobacco use date assessed: 05/31/23 Dental Screening Dental Screen Date: 05/31/23 Did you have a dental visit in the last 12 months?: No Did you have a dental problem in the last 6 months where you did not have access to dental care?: No Was dental information given to patient?: Patient has dentist HPI Urgent Care F/U- [facility] HPI Details injured lower back in an accident; went to walk-in; xr neg PFSH Medical History Dyslipidemia Migraines Obesity Type 2 diabetes mellitus with obesity CVA (cerebral vascular accident) Diabetes mellitus Surgical History H/O left knee surgery H/O hernia repair History of vasectomy Family History Father No problems noted. Mother No problems noted. Paternal Grandmother Diabetes Social History Household Members: Spouse Housing: House Alcohol intake: current Alcohol intake frequency: a few times a week Patient Tobacco Use Status: Never used Tobacco e-Cigarette/Vaping Use: Never Used Second Hand Smoke Exposure: No service: No Current occupational status: unemployed Cognitive needs: No Hearing needs: No Vision needs: Yes (reading glasses) Questionnaire Thrive Questionnaire Date Thrive assessed: 01/04/23 JONAH-7 AMB Questionnaire JONAH-7 Date JONAH - 7 assessed: 01/04/23 Source: Developed by Drs. Vincenzo Velasquez, Sarah Lemus, Broderick Lundy and colleagues, with an educational garfield from [employer]. Review of Systems Const Denies chills, Denies headache(s) and Denies weight loss ENT Denies headache(s) Card Denies chest pain, Denies syncope, Denies irregular heart rhythm and Denies dyspnea Resp Denies chest congestion, Denies cough and Denies dyspnea GI Denies abdominal pain, Denies change in stool character, Denies nausea and Denies vomiting Musc Denies deformity and Denies joint swelling Neuro Denies syncope and Denies headache(s) Physical exam (Primary Care) Vital Signs: Last Vital Signs Pulse 120 H 05/31/23 13:34 BP 136/86 05/31/23 13:34 Pulse Ox 96 05/31/23 13:34 Oxygen Delivery Method Room Air 05/31/23 13:34 BMI result Body Mass Index 32.5 Tobacco/Smoking Status: Tobacco use Status Tobacco use date assessed 05/31/23 05/31/23 13:35 Patient Tobacco Use Status Never used Tobacco 05/31/23 13:35 e-Cigarette/Vaping Use Never Used 05/31/23 13:35 Thrive Assessment: Date of Thrive Assessment Date Thrive assessed 01/04/23 05/31/23 13:35 Const General: cooperative, comfortable, no acute distress and alert Neck Neck: Yes no lymphadenopathy Thyroid: Thyroid normal Resp Effort & Inspection: normal respiratory effort Auscultation: clear to auscultation bilaterally Percussion: percussion normal Cardio Jugular venous distension: no JVD Palpation: normal PMI Rate: regular rate Rhythm: regular rhythm Heart sounds: S1 normal heart sound present and S2 normal heart sound present GI Inspection: Yes normal to inspection Palpation (GI): No hepatosplenomegaly present Skin General skin exam: no rashes or lesions noted Extrem General: Yes no clubbing, cyanosis or edema Results AMB Hemoglobin A1c AMB Hemoglobin A1c 10.6 % Last Edit by NADIYA Glass on 05/31/23 13:49 Results Reviewed Results Reviewed: Laboratory Last Values Hgb A1c (Clinic) 10.6 % (4.0-6.0) H 05/31/23 13:37 Assessment and Plan Assessment & Plan (1) Low back pain: Code(s): M54.50 - Low back pain, unspecified Plan: should improve with conservative care; may need some oow notes Orders: Orders AMB Hemoglobin A1c 05/31/23 E11.69 - Type 2 diabetes mellitus with other specified complication, E66.9 - Obesity, unspecified Coding Level of Care Code Est Pt Level 3 (94511) Diagnoses Low back pain M54.50
== END 2023-05-31 13:53 | disposition home or self-care (01) ==
PROVIDERS: PCP Internal Medicine; Visit Provider Internal Medicine
DX: E11.69 Type 2 diabetes mellitus with other specified complication (principal); E66.9 Obesity, unspecified; Z68.32 Body mass index [BMI] 32.0-32.9, adult
CPT/HCPCS: 83036; 99213

== ENCOUNTER → 2023-06-29 23:59 | Outpatient (BNV) | payer OTHER, SELFPAY ==
--- NOTE | 2023-06-29 11:37 | MHC.OFFVIS ---
Intake Intake Visit Reasons: Remote ILR Check- [facility] Allergies No Known Allergies Allergy (Verified 01/04/23 14:16) PFSH Medical History Dyslipidemia Migraines Obesity Type 2 diabetes mellitus with obesity CVA (cerebral vascular accident) Diabetes mellitus Surgical History H/O left knee surgery H/O hernia repair History of vasectomy Family History Father No problems noted. Mother No problems noted. Paternal Grandmother Diabetes Social History Household Members: Spouse Housing: House Alcohol intake: current Alcohol intake frequency: a few times a week Patient Tobacco Use Status: Never used Tobacco e-Cigarette/Vaping Use: Never Used Second Hand Smoke Exposure: No service: No Current occupational status: unemployed Cognitive needs: No Hearing needs: No Vision needs: Yes (reading glasses) Office Procedures Cardiac Device Check Cardiac Device Check Details: Date of service 06/29/2023; in the current monitoring period, there is no evidence of atrial fibrillation. [id number] Cardiac Interrogation, subcut cardiac rhythm monitor Procedure code (CPT) selection complete Assessment & Plan Assessment & Plan (1) Embolic stroke: Code(s): I63.9 - Cerebral infarction, unspecified Plan x Coding Level of Care Code Procedure Only Diagnoses Embolic stroke I63.9 CPT Codes Cardiac Device Check - Cardiac Device 16: [id number] Cardiac Interrogation, subcut cardiac rhythm monitor ([id number])
== END ==
PROVIDERS: PCP Internal Medicine; Visit Provider Internal Medicine
DX: I63.9 Cerebral infarction, unspecified (principal); Z95.818 Presence of other cardiac implants and grafts
CPT/HCPCS: 93298

== ENCOUNTER 2023-07-04 09:30 | Outpatient (AMB) | payer OTHER, SELFPAY ==
[2023-07-04 11:05] VITALS: BP 140/82; PULSE 92; TEMP 36.1; O2SAT 97; BMI 32.1
--- NOTE | 2023-07-04 11:05 | AM.OFFWIN_ITS ---
Intake Vital Signs 07/04/23 11:05 Height 5 ft 8 in Weight 211 lb BMI 32.1 BP 140/82 H Blood Pressure Location Lt brachial Position Sitting Pulse 92 Pulse Source Pulse Oximeter Temp 97.0 F Temp Source Temporal Artery Scan Pulse Oximetry (%) 97 Oxygen Delivery Method Room Air Intake Visit Reasons: EP ?Flu [phone] Intake Note: pt is here today for flu started tuesday Patient Tobacco Use Status: Never used Tobacco Allergies No Known Allergies Allergy (Verified 07/04/23 11:05) Do you need a note to return to daycare/school/sports/work: Yes HPI HPI Comments History of Present Illness Details Patient presents to the walk-in today for sick visit Complaining of cough, congestion, fever and body aches for last 3 days Denies chest pain, shortness of breath, syncope, weakness, dizziness, palpitations Has been using TheraFlu with improvement in his symptoms Negative COVID test at home Requesting work note today [facility] Medical History Dyslipidemia Migraines Obesity Type 2 diabetes mellitus with obesity CVA (cerebral vascular accident) Diabetes mellitus Surgical History H/O left knee surgery H/O hernia repair History of vasectomy Family History Father No problems noted. Mother No problems noted. Paternal Grandmother Diabetes Social History Household Members: Spouse Housing: House Alcohol intake: current Alcohol intake frequency: a few times a week Patient Tobacco Use Status: Never used Tobacco e-Cigarette/Vaping Use: Never Used Second Hand Smoke Exposure: No service: No Current occupational status: unemployed Cognitive needs: No Hearing needs: No Vision needs: Yes (reading glasses) Review of Systems Const All systems reviewed & are unremarkable except as noted in HPI and below Physical Exam Vital Signs: Last Vital Signs Temp 97.0 F 07/04/23 11:05 Pulse 92 07/04/23 11:05 BP 140/82 H 07/04/23 11:05 Pulse Ox 97 07/04/23 11:05 Oxygen Delivery Method Room Air 07/04/23 11:05 BMI result Body Mass Index 32.1 General: awake, alert, oriented. Answers questions appropriately. Fully engaged in examination. Skin: warm, dry, intact HEENT: TMs intact bilaterally, no redness. Posterior pharynx without erythema or exudate. Sclera without icterus or injection. Cardiac: External chest normal in appearance. Respiratory: +cough. LSCTAB. Abdomen: without gross distension. Neurological: Oriented to person, place, time and situation. Thought process intact. Psychiatric: Appropriate mood and affect. Good judgment and insight. Assessment & Plan Assessment & Plan (1) URI (upper respiratory infection): Code(s): J06.9 - Acute upper respiratory infection, unspecified Plan URI, no abx warranted. SARS-CoV2/FLU/RSV swab collected, results pending. Patient aware he will be called with results. Benzonatate 100mg po bid as needed Rest, drink plenty of fluids, tylenol or motrin as needed. Follow up with pcp or in clinic for any new or worsening symptoms. Go to ER for shortness of breath, chest pain, palpitations, weakness, dizziness. Orders: Orders SARS-CoV2/FLU/RSV Today J06.9 - Acute upper respiratory infection, unspecified Medications: New benzonatate 100 mg PO BID PRN 20 caps 0RF cough Coding Level of Care Code Est Pt Level 3 (16260) Diagnoses URI (upper respiratory infection) J06.9
== END 2023-07-04 12:20 | disposition home or self-care (01) ==
PROVIDERS: PCP Internal Medicine; Visit Provider Registered Nurse Emergency
DX: J06.9 Acute upper respiratory infection, unspecified (principal)
CPT/HCPCS: 99213

== ENCOUNTER 2023-07-04 14:07 | Outpatient (REF) | payer OTHER, SELFPAY ==
[2023-07-04 14:49] LABS: Influenza A PCR POSITIVE (Negative); Influenza B PCR NEGATIVE (Negative); Resp Syncy Virus RNA Qual PCR NEGATIVE (Negative); SARS COV2 PCR INHOUSE NEGATIVE (Negative)
== END 2023-07-04 14:08 | disposition home or self-care (01) ==
LOC: HO.LNP 14:07
PROVIDERS: Visit Provider Registered Nurse Emergency
DX: Z11.52 Encounter for screening for COVID-19 (principal); Z20.822 Contact with and (suspected) exposure to COVID-19; J06.9 Acute upper respiratory infection, unspecified
CPT/HCPCS: 0241U

== ENCOUNTER → 2023-07-30 23:59 | Outpatient (BNV) | payer OTHER, SELFPAY ==
--- NOTE | 2023-08-07 18:53 | MHC.OFFVIS ---
Intake Intake Visit Reasons: Remote ILR Check- [facility] Allergies No Known Allergies Allergy (Verified 07/04/23 11:05) PFSH Medical History Dyslipidemia Migraines Obesity Type 2 diabetes mellitus with obesity CVA (cerebral vascular accident) Diabetes mellitus Surgical History H/O left knee surgery H/O hernia repair History of vasectomy Family History Father No problems noted. Mother No problems noted. Paternal Grandmother Diabetes Social History Household Members: Spouse Housing: House Alcohol intake: current Alcohol intake frequency: a few times a week Patient Tobacco Use Status: Never used Tobacco e-Cigarette/Vaping Use: Never Used Second Hand Smoke Exposure: No service: No Current occupational status: unemployed Cognitive needs: No Hearing needs: No Vision needs: Yes (reading glasses) Office Procedures Cardiac Device Check Cardiac Device Check Details: Date of service 07/30/2023; in the current monitoring period, there is no evidence of atrial fibrillation. [id number] Cardiac Interrogation, subcut cardiac rhythm monitor Procedure code (CPT) selection complete Assessment & Plan Assessment & Plan (1) Embolic stroke: Code(s): I63.9 - Cerebral infarction, unspecified Plan x Coding Level of Care Code Procedure Only Diagnoses Embolic stroke I63.9 CPT Codes Cardiac Device Check - Cardiac Device 16: [id number] Cardiac Interrogation, subcut cardiac rhythm monitor ([id number])
== END ==
PROVIDERS: PCP Internal Medicine; Visit Provider Internal Medicine
DX: I63.9 Cerebral infarction, unspecified (principal)
CPT/HCPCS: 93298

== ENCOUNTER → 2023-09-30 23:59 | Outpatient (BNV) | payer OTHER, SELFPAY ==
--- NOTE | 2023-10-16 14:19 | MHC.OFFVIS ---
Intake Visit Reasons: Remote ILR Check- [facility] Allergies No Known Allergies Allergy (Verified 07/04/23 11:05) PFSH Medical History Dyslipidemia Migraines Obesity Type 2 diabetes mellitus with obesity CVA (cerebral vascular accident) Diabetes mellitus Surgical History H/O left knee surgery H/O hernia repair History of vasectomy Family History Father No problems noted. Mother No problems noted. Paternal Grandmother Diabetes Social History Household Members: Spouse Housing: House Alcohol intake: current Alcohol intake frequency: a few times a week Patient Tobacco Use Status: Never used Tobacco e-Cigarette/Vaping Use: Never Used Second Hand Smoke Exposure: No service: No Current occupational status: unemployed Cognitive needs: No Hearing needs: No Vision needs: Yes (reading glasses) Office Procedures Cardiac Device Check Cardiac Device Check Details: Date of service 09/30/2023; in the current monitoring period, there is no evidence of atrial fibrillation. [id number] Cardiac Interrogation, subcut cardiac rhythm monitor Procedure code (CPT) selection complete Assessment & Plan Assessment & Plan (1) Embolic stroke: Code(s): I63.9 - Cerebral infarction, unspecified Category: Medical Plan x Coding Level of Care Code Procedure Only Diagnoses Embolic stroke I63.9 CPT Codes Cardiac Device Check - Cardiac Device 16: [id number] Cardiac Interrogation, subcut cardiac rhythm monitor ([id number])
== END ==
PROVIDERS: PCP Internal Medicine; Visit Provider Internal Medicine
DX: I63.9 Cerebral infarction, unspecified (principal); Z95.818 Presence of other cardiac implants and grafts
CPT/HCPCS: 93298

== ENCOUNTER → 2023-10-31 23:59 | Outpatient (BNV) | payer OTHER, SELFPAY ==
--- NOTE | 2023-11-09 13:47 | MHC.OFFVIS ---
Intake Visit Reasons: Remote ILR Check- [facility] Allergies No Known Allergies Allergy (Verified 07/04/23 11:05) PFSH Medical History Dyslipidemia Migraines Obesity Type 2 diabetes mellitus with obesity CVA (cerebral vascular accident) Diabetes mellitus Surgical History H/O left knee surgery H/O hernia repair History of vasectomy Family History Father No problems noted. Mother No problems noted. Paternal Grandmother Diabetes Social History Household Members: Spouse Housing: House Alcohol intake: current Alcohol intake frequency: a few times a week Patient Tobacco Use Status: Never used Tobacco e-Cigarette/Vaping Use: Never Used Second Hand Smoke Exposure: No service: No Current occupational status: unemployed Cognitive needs: No Hearing needs: No Vision needs: Yes (reading glasses) Office Procedures Cardiac Device Check Cardiac Device Check Details: Date of service 10/31/2023; in the current monitoring period, there is no evidence of atrial fibrillation. [id number] Cardiac Interrogation, subcut cardiac rhythm monitor Procedure code (CPT) selection complete Assessment & Plan Assessment & Plan (1) Embolic stroke: Code(s): I63.9 - Cerebral infarction, unspecified Category: Medical Plan x Coding Level of Care Code Procedure Only Diagnoses Embolic stroke I63.9 CPT Codes Cardiac Device Check - Cardiac Device 16: [id number] Cardiac Interrogation, subcut cardiac rhythm monitor ([id number])
== END ==
PROVIDERS: PCP Internal Medicine; Visit Provider Internal Medicine
DX: I63.9 Cerebral infarction, unspecified (principal); Z95.818 Presence of other cardiac implants and grafts
CPT/HCPCS: 93298

== ENCOUNTER 2023-11-14 13:23 | Outpatient (AMB) | payer OTHER, SELFPAY ==
[2023-11-14 13:32] VITALS: BP 126/78; PULSE 90; BMI 32.2
--- NOTE | 2023-11-14 13:32 | A.OFFVIS_ITS ---
Vital Signs 11/14/23 13:32 Height 5 ft 8 in Weight 212 lb 1.355 oz BMI 32.2 BP 126/78 Blood Pressure Location Lt brachial Position Sitting Pulse 90 Intake Visit Reasons: 6 mth f/up Intake Note: 6mo f/u Community Nurse Required: No Accompanied by: Spouse Allergies No Known Allergies Allergy (Verified 07/04/23 11:05) Medication List - Last Reconciled 11/14/23 by Michelle Salinas NP-C atorvastatin 80 mg PO DAILY benzonatate 100 mg PO BID PRN clopidogrel 75 mg PO DAILY dulaglutide (Trulicity) 0.75 mg (0.5 mL) subcut QWEEK insulin degludec (Tresiba FlexTouch U-100 insulin) 50 units (0.5 mL) subcut BEDTIME miscellaneous medical supply BD Pen Needle [place] U/F 32G X 4 MM once per day omeprazole 20 mg PO BID HPI HPI 6 mth f/up: Details: [place] is a 53-year-old male with past medical history of diabetes, obesity, CVA who has ILR iin place to evaluate for presence of AFib, who now presents for follow-up. Today he reports that he has been doing well since his last visit in May. He has no concerning symptoms. He has not had any new neurological symptoms of vision changes, speech disturbance, movement or sensory disturbances of his extremities. From his prior CVA he will have some slurred speech at times when he is tired. He denies having heart palpitations. ILR site is sore at times when he lays on his side. No other chest discomfort, no shortness of breath, presyncope, syncope, PND, orthopnea or edema. He reports good activity tolerance. Takes all meds as directed. Significant other present. [facility] Medical History Dyslipidemia Migraines Obesity Type 2 diabetes mellitus with obesity CVA (cerebral vascular accident) Diabetes mellitus Surgical History H/O left knee surgery H/O hernia repair History of vasectomy Family History Father No problems noted. Mother No problems noted. Paternal Grandmother Diabetes Social History Household Members: Spouse Housing: House Alcohol intake: current Alcohol intake frequency: a few times a week Patient Tobacco Use Status: Never used Tobacco e-Cigarette/Vaping Use: Never Used Second Hand Smoke Exposure: No service: No Current occupational status: unemployed Cognitive needs: No Hearing needs: No Vision needs: Yes (reading glasses) Review of Systems Const All systems reviewed & are unremarkable except as noted in HPI and below Denies chills, Denies fatigue, Denies fever(s), Denies frequent falls, Denies weakness, Denies weight gain and Denies weight loss ENT Denies dizziness Card Denies chest pain, Denies leg edema, Denies lightheadedness, Denies palpitations, Denies dyspnea on exertion and Denies orthopnea Resp Denies cough and Denies dyspnea on exertion GI Denies hematochezia and Denies change in stool character Musc Denies abnormal gait, Denies muscle weakness, Denies numbness, Denies radiating pain into limb and Denies tingling Neuro Denies abnormal gait, Denies dizziness, Denies frequent falls, Denies numbness, Denies tingling and Denies weakness Endo Denies fatigue and Denies palpitations Physical Exam Vital Signs: Last Vital Signs Pulse 90 11/14/23 13:32 BP 126/78 11/14/23 13:32 BMI result Body Mass Index 32.2 Const General: cooperative, healthy appearing, comfortable and no acute distress Orientation/consciousness: patient oriented x3 Neck Neck: Yes normal visual inspection Resp Effort & Inspection: normal respiratory effort Auscultation: clear to auscultation bilaterally, no crackles, no rales, no rhonchi and no wheezes Cardio Jugular venous distension: no JVD Rate: regular rate Rhythm: regular rhythm Heart sounds: S1 normal heart sound present, S2 normal heart sound present, no murmurs and no rubs Neuro General: patient oriented x3 Extrem General: Yes normal to inspection, No no pedal edema and No calf tenderness Psych Appearance: grossly normal Mental Status: mental status grossly normal Speech and movement: Normal speech and movement present Office Procedures Cardiac Device Check Cardiac Device Check Details: [facility] interrogation today shows battery nearing end of life, no AFib, tachy episodes Crispin or pauses. [id number] Cardiac Interrogation, subcut cardiac rhythm monitor Procedure code (CPT) selection complete EKG Details: Today, read by me, normal sinus rhythm, left axis deviation, minimal voltage criteria for LVH, rate 90, QTC 428 millisecond [id number], Complete Assessment & Plan Assessment & Plan (1) CVA (cerebral vascular accident): Comment: 2018 Code(s): I63.9 - Cerebral infarction, unspecified Category: Medical Plan: History of CVA 2018. Evaluated at [facility] 07/2020 for difficulty speaking. CTA of the brain and neck reported as being okay. A 48 hour Holter monitor done at [facility] showed only sinus rhythm. MRI of the brain July 2020 showed chronic left frontal and parietal infarcts with acute left basal ganglia infarct. He has been followed by Neurology and is on Plavix. He was seen by Dr. Camarillo 07/2021 and then underwent a transesophageal echo on 08/13 showing EF 55-60%, no regional wall motion abnormalities, bubble study showing no shunt and no thrombus in the left atrial appendage. No cardiac sour ce of the emboli noted. He underwent an ILR placement on 11/04/2021. Office interrogation today and remote monitoring shows no evidence of true atrial fibrillation. Will continue to monitor device remotely. The battery is near end of life. Once this occurs will arrange for device removal with Dr. Beckham. Will arrange for office follow-up in 6 months, sooner if needed. (2) Implantable loop recorder present: Comment: 11/04/[address] Beckham, left chest Code(s): Z95.818 - Presence of other cardiac implants and grafts Category: Medical Plan: As above (3) Embolic stroke: Code(s): I63.9 - Cerebral infarction, unspecified Category: Medical Plan: As above Plan Time spent on chart review, documentation, interview and assessment Coding Level of Care Code Est Pt Level 3 (86242) Diagnoses CVA (cerebral vascular accident) I63.9 Implantable loop recorder present Z95.818 Embolic stroke I63.9 CPT Codes Cardiac Device Check - Cardiac Device 16: [id number] Cardiac Interrogation, subcut cardiac rhythm monitor ([id number]) EKG - CPT: 80184-Htrhtlekvsiueoohi, Complete ([id number]) Time Spent (min) 24
== END 2023-11-14 13:58 | disposition home or self-care (01) ==
PROVIDERS: PCP Internal Medicine; Visit Provider Nurse Practitioner Family
DX: I63.9 Cerebral infarction, unspecified (principal); T82.111A Breakdown (mechanical) of cardiac pulse generator (battery), initial encounter; Z95.818 Presence of other cardiac implants and grafts; R94.31 Abnormal electrocardiogram [ECG] [EKG]
CPT/HCPCS: 93010; 93285; 99213

== ENCOUNTER → 2023-11-14 13:23 | Outpatient (BNVA) | payer OTHER, SELFPAY | PROVIDERS: PCP Internal Medicine; Visit Provider Nurse Practitioner Family | DX: Z86.73 Personal history of transient ischemic attack (TIA), and cerebral infarction without residual deficits (principal); Z95.818 Presence of other cardiac implants and grafts | CPT/HCPCS: 93005 ==

== ENCOUNTER 2023-12-08 11:04 | Outpatient (AMB) | payer OTHER, SELFPAY ==
[2023-12-08 11:10] VITALS: BP 122/80; PULSE 70; O2SAT 98; BMI 32.4
--- NOTE | 2023-12-08 11:10 | MHC.PC.OV ---
Vital Signs 12/08/23 11:10 Height 5 ft 8 in Weight 213 lb BMI 32.4 BP 122/80 Blood Pressure Location Lt brachial Position Sitting Pulse 70 Pulse Source Pulse Oximeter Pulse Oximetry (%) 98 Oxygen Delivery Method Room Air Intake Visit Reasons: med f/u Nephrology Social Worker: Not Required per policy Accompanied by: Self / Same As Patient Allergies No Known Allergies Allergy (Verified 12/08/23 11:11) Medication List - Last Reconciled 12/09/23 by Diego Howell MD atorvastatin 80 mg PO DAILY benzonatate 100 mg PO BID PRN clopidogrel 75 mg PO DAILY dulaglutide (Trulicity) 0.75 mg (0.5 mL) subcut QWEEK insulin degludec (Tresiba FlexTouch U-100 insulin) 50 units (0.5 mL) subcut BEDTIME miscellaneous medical supply BD Pen Needle [place] U/F 32G X 4 MM once per day omeprazole 20 mg PO BID Tobacco use date assessed: 05/31/23 Dental Screening Dental Screen Date: 05/31/23 HPI med f/u HPI Details hyperlipidemia on rx; doing well and compliant [facility] Medical History Dyslipidemia Migraines Obesity Type 2 diabetes mellitus with obesity CVA (cerebral vascular accident) Diabetes mellitus Surgical History H/O left knee surgery H/O hernia repair History of vasectomy Family History Father No problems noted. Mother No problems noted. Paternal Grandmother Diabetes Social History Household Members: Spouse Housing: House Alcohol intake: current Alcohol intake frequency: a few times a week Patient Tobacco Use Status: Never used Tobacco e-Cigarette/Vaping Use: Never Used Second Hand Smoke Exposure: No service: No Current occupational status: unemployed Cognitive needs: No Hearing needs: No Vision needs: Yes (reading glasses) Questionnaire PHQ-9 Over the last 2 weeks, how often have you been bothered by any of the following problems? 1. Little interest or pleasure in doing things: not at all 2. Feeling down, depressed, or hopeless: not at all 3. Trouble falling or staying asleep, or sleeping too much: not at all 4. Feeling tired or having little energy: not at all 5. Poor appetite or overeating: not at all 6. Feeling bad about yourself - or that you are a failure or have let yourself or your family down: not at all 7. Trouble concentrating on things, such as reading the newspaper or watching television: not at all 8. Moving or speaking so slowly that other people could have noticed. Or the opposite - being so fidgety or restless that you have been moving around a lot more than usual: not at all 9. Thoughts that you would be better off or of hurting yourself in some way: not at all Total score: 0 Depression Screening Interpretation: Negative Depression Screening Done: Yes 84238 - PHQ-9 Billing: Yes Source: Developed by Drs. Vincenzo Velasquez, Sarah Lemus, Broderick Lundy and colleagues, with an educational garfield from [employer]. Thrive Questionnaire Date Thrive assessed: 12/08/23 I am a: Patient What is your living situation today?: I have a steady place to live Within the past 12 months, did the food you bought not last and you didn't have the money to get more?: Never true Within the past 12 months, did you worry whether your food would run out before you got money to buy more?: Never true Do you have trouble paying for medicines?: No Do you have trouble getting transportation to medical appointments?: No Do you have trouble paying your heating and electricity bill?: No Do you have trouble taking care of your child, family member or friend?: No Do you have trouble with day-to-day activities such as bathing, preparing meals, shopping, managing finances, etc.?: No Are you currently unemployed and looking for a job?: No Are you interested in more education?: No Please select the resources that you would like help with: None THRIVE Score: 0 AUDIT C Alcohol Use Questionnaire (AUDIT-C) 1. How often do you have a drink containing alcohol?: Monthly or less 2. How many drinks containing alcohol do you have on a typical day when you are drinking?: 1 or 2 Total Score: 1 Score Reviewed/Action Taken: Yes JONAH-7 AMB Questionnaire JONAH-7 Date JONAH - 7 assessed: 12/08/23 Feeling nervous, anxious, or on edge: 0 = Not at all Not being able to stop or control worryin = Not at all Worrying too much about different things: 0 = Not at all Trouble relaxin = Not at all Being so restless that it is hard to sit still: 0 = Not at all Becoming easily annoyed or irritable: 0 = Not at all Feeling afraid as if something awful might happen: 0 = Not at all Total JONAH-7 score (0-4 normal; 5-9 mild; 10-14 moderate; 15-21 severe): 0 Source: Developed by Drs. Vincenzo Velasquez, Sarah Lemus, Broderick Lundy and colleagues, with an educational garfield from [employer]. Review of Systems Const Denies chills, Denies headache(s) and Denies weight loss ENT Denies headache(s) Card Denies chest pain, Denies syncope, Denies irregular heart rhythm and Denies dyspnea Resp Denies chest congestion, Denies cough and Denies dyspnea GI Denies abdominal pain, Denies change in stool character, Denies nausea and Denies vomiting Musc Denies deformity and Denies joint swelling Neuro Denies syncope and Denies headache(s) Physical exam (Primary Care) Vital Signs: Last Vital Signs Pulse 70 12/08/23 11:10 BP 122/80 12/08/23 11:10 Pulse Ox 98 12/08/23 11:10 Oxygen Delivery Method Room Air 12/08/23 11:10 BMI result Body Mass Index 32.4 Tobacco/Smoking Status: Tobacco use Status Tobacco use date assessed 05/31/23 12/08/23 11:13 Patient Tobacco Use Status Never used Tobacco 12/08/23 11:13 e-Cigarette/Vaping Use Never Used 12/08/23 11:13 PHQ-9: PHQ-9 Score PHQ-9: Total score 0 12/08/23 11:13 Depression Screening Interpretation: Negative Thrive Assessment: Date of Thrive Assessment Date Thrive assessed 12/08/23 12/08/23 11:13 Const General: cooperative, comfortable, no acute distress and alert Neck Neck: Yes no lymphadenopathy Thyroid: Thyroid normal Resp Effort & Inspection: normal respiratory effort Auscultation: clear to auscultation bilaterally Percussion: percussion normal Cardio Jugular venous distension: no JVD Palpation: normal PMI Rate: regular rate Rhythm: regular rhythm Heart sounds: S1 normal heart sound present and S2 normal heart sound present GI Inspection: Yes normal to inspection Palpation (GI): No hepatosplenomegaly present Skin General skin exam: no rashes or lesions noted Extrem General: Yes no clubbing, cyanosis or edema Assessment and Plan Assessment & Plan (1) Hyperlipidemia: Code(s): E78.5 - Hyperlipidemia, unspecified Plan: stable; do labs Orders: Orders Complete Blood Count Auto Diff 12/08/23 Z13.0 - Encounter for screening for diseases of the blood and blood-forming organs and certain disorders involving the immune mechanism Comprehensive [place]. Panel Fast 12/08/23 Z13.9 - Encounter for screening, unspecified Hemoglobin A1c 12/08/23 R73.9 - Hyperglycemia, unspecified Lipid Panel 12/08/23 Z13.220 - Encounter for screening for lipoid disorders Thyroid Stimulating Hormone 12/08/23 Z13.29 - Encounter for screening for other suspected endocrine disorder Medications: Refilled dulaglutide (Trulicity) 0.75 mg (0.5 mL) subcut QWEEK 2 mL 8RF Coding Level of Care Code Est Pt Level 3 (70610) Diagnoses Hyperlipidemia E78.5
== END 2023-12-08 12:56 | disposition home or self-care (01) ==
PROVIDERS: PCP Internal Medicine; Visit Provider Internal Medicine
DX: E78.5 Hyperlipidemia, unspecified (principal)
CPT/HCPCS: 99213

== ENCOUNTER 2023-12-10 07:19 | Outpatient (REF) | payer OTHER, SELFPAY ==
[2023-12-10 07:45] LABS: MANUAL DIFF FLAG NO
[2023-12-10 08:11] LABS: Basophils Percent Auto 0.3 % (0-2); Eosinophils Absolute Auto 0.1 X10*3/uL (0.0-0.4); Eosinophils Percent Auto 0.8 % (0-4); Hematocrit 40.7 % (42.0-52.0); Hemoglobin 12.8 g/dl (14.0-18.0); Imm Gran Abs Auto 0.04 X10*3/uL (0.00-0.03); Imm Gran Pct Auto 0.4 % (0.0-0.4); Lymphocytes Absolute Auto 3.1 X10*3/uL (1.2-4.9); Lymphocytes Percent Auto 28.5 % (20-40); Mean Corpuscular HGB Conc 31.4 g/dl (31.0-36.0); Mean Corpuscular Hemoglobin 25.2 pg (27.0-33.0); Mean Corpuscular Volume 80.1 fL (80.0-98.0); Mean Platelet Volume 9.4 fL (9.4-12.4); Monocytes Absolute Auto 1.1 X10*3/uL (0.1-1.2); Monocytes Percent Auto 9.7 % (2-11); Neutrophils Absolute Auto 6.6 x10*3/uL (2.0-8.3); Neutrophils Percent Auto 60.3 % (45-73); Platelet Count 301 X10*3/uL (160-400); Red Blood Count 5.08 X10*6/uL (4.60-5.80); Red Cell Distribution Width 13.2 % (11.0-16.0)
[2023-12-10 08:22] LABS: Estimated Average Glucose 214 mg/dL; Hemoglobin A1c % 9.1 % (<6.0)
[2023-12-10 08:46] LABS: Alanine Aminotransferase 30 U/L (0-40); Albumin Level 3.8 g/dL (3.5-5.0); Alkaline Phosphatase 138 U/L (39-117); Anion Gap 12 (12-20); Aspartate Amino Transferase 19 U/L (5-37); Bilirubin Total 0.2 mg/dL (0.0-1.0); Blood Urea Nitrogen 14 mg/dL (9-16); Calcium 9.2 mg/dL (8.4-10.2); Carbon Dioxide 25 mmol/L (22-29); Chloride 109 mmol/L (96-108); Cholesterol 111 mg/dL (<200); Estimated Glomerular Filt Rate > 60; Glucose Fasting 197 mg/dL (60-99); HDL Cholesterol 22 mg/dL (>40); LDL Cholesterol Calculated 16 mg/dL (<100); Potassium 4.4 mmol/L (3.3-5.1); Sodium 142 mmol/L (135-145); Total Protein 6.8 g/dL (6.5-8.0); Triglycerides 366 mg/dL (<150)
[2023-12-10 09:03] LABS: Thyroid Stimulating Hormone 1.21 uIU/mL (0.32-4.0)
== END 2023-12-10 07:20 | disposition home or self-care (01) ==
LOC: HO.LAB 07:19
PROVIDERS: PCP Internal Medicine; Visit Provider Internal Medicine
DX: Z13.9 Encounter for screening, unspecified (principal); Z13.220 Encounter for screening for lipoid disorders; Z13.0 Encounter for screening for diseases of the blood and blood-forming organs and certain disorders involving the immune mechanism; R73.9 Hyperglycemia, unspecified; Z13.29 Encounter for screening for other suspected endocrine disorder
CPT/HCPCS: 36415; 80053; 80061; 83036; 84443; 85025

== ENCOUNTER 2024-01-11 13:28 | Outpatient (REF) | payer OTHER, SELFPAY ==
[2024-01-11 13:53] VITALS: BP 157/81; PULSE 82; RESP 19; TEMP 36.7; O2SAT 96; BMI 34.5
--- NOTE | 2024-01-11 15:11 | W.PM.OPN ---
Operative Note Operative Note Date of Service: 01/11/24 Narrative: After obtaining full consent patient was brought to the minor surgery suite. Patient was then laid in his semi reclining position on the operating table. Patient's device was identified. The area was then prepped and draped in a sterile fashion. Patient was then given 2% epi with lidocaine intradermally and subcutaneously around the device head. A small incision was then made around that. After some blunt dissection, device was removed. The wound was then closed with Steri-Strips and pressure dressing applied. Minimal blood loss. Patient tolerated the procedure well. Postoperative instruction was provided. Follow up in the clinic in 7-10 days
== END 2024-01-11 13:29 | disposition home or self-care (01) ==
LOC: HO.MS 13:28
PROVIDERS: PCP Internal Medicine; Visit Provider Internal Medicine Cardiovascular Disease
PROC: (CPT 33285; principal; 2024-01-11 14:00)
DX: Z95.818 Presence of other cardiac implants and grafts (principal)

== ENCOUNTER → 2024-01-11 13:28 | Outpatient (BNV) | payer OTHER, SELFPAY | PROVIDERS: PCP Internal Medicine; Visit Provider Internal Medicine Cardiovascular Disease | DX: Z45.09 Encounter for adjustment and management of other cardiac device (principal) | CPT/HCPCS: 33286 ==

== ENCOUNTER 2024-04-03 10:20 | Outpatient (AMB) | payer OTHER, SELFPAY ==
[2024-04-03 10:22] VITALS: BP 128/78; PULSE 77; O2SAT 98; BMI 32.2
--- NOTE | 2024-04-03 10:22 | A.OFFPC_ITS ---
Vital Signs 04/03/24 10:22 Height 5 ft 8 in Weight 212 lb BMI 32.2 BP 128/78 Blood Pressure Location Lt brachial Position Sitting Pulse 77 Pulse Source Pulse Oximeter Pulse Oximetry (%) 98 Oxygen Delivery Method Room Air Intake Visit Reasons: Annual Exam Railway Signal Operator Required: No Accompanied by: Self / Same As Patient Allergies No Known Allergies Allergy (Verified 04/03/24 10:22) Medication List - Last Reconciled 04/04/24 by Diego Howell MD atorvastatin 80 mg PO DAILY benzonatate 100 mg PO BID PRN clopidogrel 75 mg PO DAILY dulaglutide (Trulicity) 0.75 mg (0.5 mL) subcut QWEEK insulin degludec (Tresiba FlexTouch U-100 insulin) 50 units (0.5 mL) subcut BEDTIME miscellaneous medical supply BD Pen Needle [place] U/F 32G X 4 MM once per day omeprazole 20 mg PO BID Tobacco use date assessed: 05/31/23 Dental Screening Dental Screen Date: 05/31/23 HPI Annual Exam HPI Details DM and hyperlipidemia; stable; due for labs [facility] Medical History Dyslipidemia Migraines Obesity Type 2 diabetes mellitus with obesity CVA (cerebral vascular accident) Diabetes mellitus Surgical History H/O left knee surgery H/O hernia repair History of vasectomy Family History Father No problems noted. Mother No problems noted. Paternal Grandmother Diabetes Social History Household Members: Spouse Housing: House Alcohol intake: current Alcohol intake frequency: a few times a week Patient Tobacco Use Status: Never used Tobacco Tobacco use type: Cigarette e-Cigarette/Vaping Use: Never Used Second Hand Smoke Exposure: No service: No Current occupational status: unemployed Cognitive needs: No Hearing needs: No Vision needs: Yes (reading glasses) Questionnaire PHQ-9 Over the last 2 weeks, how often have you been bothered by any of the following problems? 1. Little interest or pleasure in doing things: not at all 2. Feeling down, depressed, or hopeless: not at all 3. Trouble falling or staying asleep, or sleeping too much: not at all 4. Feeling tired or having little energy: not at all 5. Poor appetite or overeating: not at all 6. Feeling bad about yourself - or that you are a failure or have let yourself or your family down: not at all 7. Trouble concentrating on things, such as reading the newspaper or watching television: not at all 8. Moving or speaking so slowly that other people could have noticed. Or the o pposite - being so fidgety or restless that you have been moving around a lot more than usual: not at all 9. Thoughts that you would be better off or of hurting yourself in some way: not at all Total score: 0 Source: Developed by Drs. Vincenzo Velasquez, Sarah Lemus, Broderick Lundy and colleagues, with an educational garfield from [employer]. Thrive Questionnaire Date Thrive assessed: 04/03/24 I am a: Patient What is your living situation today?: I have a steady place to live Within the past 12 months, did the food you bought not last and you didn't have the money to get more?: Never true Within the past 12 months, did you worry whether your food would run out before you got money to buy more?: Never true Do you have trouble paying for medicines?: No Do you have trouble getting transportation to medical appointments?: No Do you have trouble paying your heating and electricity bill?: No Do you have trouble taking care of your child, family member or friend?: No Do you have trouble with day-to-day activities such as bathing, preparing meals, shopping, managing finances, etc.?: No Are you currently unemployed and looking for a job?: No Are you interested in more education?: No Please select the resources that you would like help with: None Currently or been in a relationship where the following occur: No concerns reported THRIVE Score: 0 AUDIT C Alcohol Use Questionnaire (AUDIT-C) 1. How often do you have a drink containing alcohol?: Never Total Score: 0 JONAH-7 AMB Questionnaire JONAH-7 Date JONAH - 7 assessed: 04/03/24 Feeling nervous, anxious, or on edge: 0 = Not at all Not being able to stop or control worryin = Not at all Worrying too much about different things: 0 = Not at all Trouble relaxin = Not at all Being so restless that it is hard to sit still: 0 = Not at all Becoming easily annoyed or irritable: 0 = Not at all Feeling afraid as if something awful might happen: 0 = Not at all Total JONAH-7 score (0-4 normal; 5-9 mild; 10-14 moderate; 15-21 severe): 0 Source: Developed by Drs. Vincenzo Velasquez, Sarah Lemus, Broderick Lundy and colleagues, with an educational garfield from [employer]. Review of Systems Const Denies chills, Denies fatigue, Denies headache(s) and Denies weight loss Eyes Denies change in vision, Denies diplopia and Denies eye pain ENT Denies vertigo, Denies dizziness, Denies headache(s) and Denies nasal discharge Card Denies chest pain, Denies rapid heart rate and Denies dyspnea on exertion Resp Denies chest congestion, Denies cough, Denies pain with cough and Denies dyspnea on exertion GI Denies abdominal pain, Denies hematochezia and Denies change in bowel habits Musc Denies myalgias, Denies arthralgias and Denies joint swelling Skin/Breast Denies lesions and Denies unusual bruising Neuro Denies vertigo, Denies dizziness, Denies headache(s) and Denies focal weakness Endo Denies fatigue Physical exam (Primary Care) Vital Signs: Last Vital Signs Pulse 77 04/03/24 10:22 BP 128/78 04/03/24 10:22 Pulse Ox 98 04/03/24 10:22 Oxygen Delivery Method Room Air 04/03/24 10:22 BMI result Body Mass Index 32.2 Tobacco/Smoking Status: Tobacco use Status Tobacco use date assessed 05/31/23 04/03/24 10:23 Patient Tobacco Use Status Never used Tobacco 04/03/24 10:23 Tobacco use type Cigarette 04/03/24 10:23 e-Cigarette/Vaping Use Never Used 04/03/24 10:23 PHQ-9: PHQ-9 Score PHQ-9: Total score 0 04/03/24 10:36 Thrive Assessment: Date of Thrive Assessment Date Thrive assessed 04/03/24 04/03/24 10:23 Currently or been in a relationship where the following occur: No concerns reported Const General: cooperative, healthy appearing and no acute distress Orientation/consciousness: oriented to person, oriented to place and oriented to time HENMT Head: Yes normal to inspection, Yes normocephalic and Yes atraumatic Mouth: Normal oral and palatal mucosa present and tongue normal Throat: Yes posterior oropharynx normal and Yes uvula midline Eyes General: appearance normal, both eyes and all related structures Neck Neck: Yes normal visual inspection, Yes full ROM and Yes no lymphadenopathy Thyroid: Thyroid normal Carotids: normal carotid upstroke Chest Chest palpation & inspection: normal inspection of the chest Resp Effort & Inspection: normal respiratory effort and able to speak in complete sentences Auscultation: clear to auscultation bilaterally Cardio Jugular venous distension: no JVD Palpation: normal PMI Rate: regular rate Rhythm: regular rhythm Heart sounds: S1 normal heart sound present and S2 normal heart sound present GI Inspection: Yes normal to inspection Palpation (GI): Soft to palpation and No hepatosplenomegaly present Auscultation: normal bowel sounds General: Yes no CVA tenderness Back/Spine/Pelvis Back: no CVA tenderness Skin General skin exam: no rashes or lesions noted Neuro General: oriented to person, oriented to place and oriented to time Extrem General: Yes normal to inspection and Yes full ROM Results AMB Hemoglobin A1c AMB Hemoglobin A1c 9.1 % Last Edit by Evelyne Rothman CMA on 04/03/24 10 :36 Results Reviewed Results Reviewed: Laboratory Last Values Hgb A1c (Clinic) 9.1 % (4.0-6.0) H 04/03/24 10:23 Coding Level of Care Code Est Pt Prev Care 40-64y(90896) Diagnoses Physical exam Z00.00 Type 2 diabetes mellitus with obesity E11.69; E66.9 Hyperlipidemia E78.5 Assessment & Plan Assessment & Plan (1) Physical exam: Code(s): Z00.00 - Encounter for general adult medical examination without abnormal findings Category: Medical Plan: stable; do labs (2) Type 2 diabetes mellitus with obesity: Code(s): E11.69 - Type 2 diabetes mellitus with other specified complication; E66.9 - Obesity, unspecified Category: Medical Plan: stable; same rx (3) Hyperlipidemia: Code(s): E78.5 - Hyperlipidemia, unspecified Category: Medical Plan: stable; same rx Orders: Orders AMB Hemoglobin A1c 04/03/24 Z13.9 - Encounter for screening, unspecified Comprehensive [place]. Panel Fast 04/03/24 Z13.9 - Encounter for screening, unspecified Hemoglobin A1c 04/03/24 R73.9 - Hyperglycemia, unspecified Lipid Panel 04/03/24 Z13.220 - Encounter for screening for lipoid disorders Thyroid Stimulating Hormone 04/03/24 Z13.29 - Encounter for screening for other suspected endocrine disorder Complete Blood Count Auto Diff 04/03/24 Z13.0 - Encounter for screening for diseases of the blood and blood-forming organs and certain disorders involving the immune mechanism Microalbumin, Random (w Creat) 04/03/24 E11.69 - Type 2 diabetes mellitus with other specified complication, E66.01 - Morbid (severe) obesity due to excess calories
== END 2024-04-03 11:51 | disposition home or self-care (01) ==
PROVIDERS: PCP Internal Medicine; Visit Provider Internal Medicine
DX: Z00.00 Encounter for general adult medical examination without abnormal findings (principal); E11.69 Type 2 diabetes mellitus with other specified complication; E66.9 Obesity, unspecified; Z68.32 Body mass index [BMI] 32.0-32.9, adult; E78.5 Hyperlipidemia, unspecified

== ENCOUNTER → 2024-04-03 10:20 | Outpatient (BNVA) | payer OTHER, SELFPAY | PROVIDERS: PCP Internal Medicine; Visit Provider Internal Medicine | DX: Z00.00 Encounter for general adult medical examination without abnormal findings (principal); E11.69 Type 2 diabetes mellitus with other specified complication; E66.9 Obesity, unspecified; Z68.32 Body mass index [BMI] 32.0-32.9, adult; E78.5 Hyperlipidemia, unspecified | CPT/HCPCS: 83036; 96127 ==

== ENCOUNTER 2024-04-07 07:52 | Outpatient (REF) | payer OTHER, SELFPAY ==
[2024-04-07 08:10] LABS: MANUAL DIFF FLAG NO
[2024-04-07 08:24] LABS: Basophils Percent Auto 0.3 % (0-2); Eosinophils Absolute Auto 0.1 X10*3/uL (0.0-0.4); Eosinophils Percent Auto 0.6 % (0-4); Hematocrit 39.3 % (42.0-52.0); Imm Gran Abs Auto 0.08 X10*3/uL (0.00-0.03); Imm Gran Pct Auto 0.8 % (0.0-0.4); Lymphocytes Absolute Auto 2.6 X10*3/uL (1.2-4.9); Lymphocytes Percent Auto 27.7 % (20-40); Mean Corpuscular HGB Conc 33.1 g/dl (31.0-36.0); Mean Corpuscular Hemoglobin 26.2 pg (27.0-33.0); Mean Corpuscular Volume 79.1 fL (80.0-98.0); Mean Platelet Volume 9.6 fL (9.4-12.4); Monocytes Absolute Auto 0.8 X10*3/uL (0.1-1.2); Monocytes Percent Auto 8.6 % (2-11); Neutrophils Absolute Auto 5.8 x10*3/uL (2.0-8.3); Platelet Count 271 X10*3/uL (160-400); Red Blood Count 4.97 X10*6/uL (4.60-5.80); Red Cell Distribution Width 12.9 % (11.0-16.0); White Blood Count 9.4 X10*3/uL (4.8-10.8)
[2024-04-07 08:32] LABS: Estimated Average Glucose 229 mg/dL; Hemoglobin A1C 269.7817 umol/L; Hemoglobin A1c % 9.6 % (<6.0); Total Hemoglobin (HGBA1C) 3324.1825 umol/L
[2024-04-07 08:55] LABS: Creatinine Urine 138.84 mg/dL; Microalbum/Creatinine Ratio Ur 7.9 ug/mg cr (<30)
[2024-04-07 09:03] LABS: Alanine Aminotransferase 37 U/L (0-40); Albumin Level 3.7 g/dL (3.5-5.0); Alkaline Phosphatase 184 U/L (39-117); Anion Gap 9 (12-20); Aspartate Amino Transferase 23 U/L (5-37); Bilirubin Total 0.3 mg/dL (0.0-1.0); Blood Urea Nitrogen 11 mg/dL (9-16); Calcium 9.3 mg/dL (8.4-10.2); Carbon Dioxide 27 mmol/L (22-29); Chloride 107 mmol/L (96-108); Cholesterol 148 mg/dL (<200); Estimated Glomerular Filt Rate > 60; Glucose Fasting 272 mg/dL (60-99); HDL Cholesterol 25 mg/dL (>40); Potassium 4.6 mmol/L (3.3-5.1); Sodium 138 mmol/L (135-145); Total Protein 6.8 g/dL (6.5-8.0); Triglycerides 471 mg/dL (<150)
[2024-04-07 09:19] LABS: Thyroid Stimulating Hormone 1.36 uIU/mL (0.32-4.0)
== END 2024-04-07 07:53 | disposition home or self-care (01) ==
LOC: HO.LAB 07:52
PROVIDERS: PCP Internal Medicine; Visit Provider Internal Medicine
DX: Z13.9 Encounter for screening, unspecified (principal); Z13.220 Encounter for screening for lipoid disorders; Z13.29 Encounter for screening for other suspected endocrine disorder; R73.9 Hyperglycemia, unspecified; Z13.0 Encounter for screening for diseases of the blood and blood-forming organs and certain disorders involving the immune mechanism; E11.69 Type 2 diabetes mellitus with other specified complication; E66.01 Morbid (severe) obesity due to excess calories
CPT/HCPCS: 36415; 80053; 80061; 82043; 82570; 83036; 84443; 85025

== ENCOUNTER 2024-05-22 09:03 | Outpatient (AMB) | payer OTHER, SELFPAY ==
[2024-05-22 09:24] VITALS: BP 138/70; PULSE 78; BMI 32.7
--- NOTE | 2024-05-22 09:24 | MHC.OFFVIS ---
Vital Signs 05/22/24 09:24 Height 5 ft 8 in Weight 215 lb 2.738 oz BMI 32.7 BP 138/70 Blood Pressure Location Rt brachial Position Sitting Pulse 78 Pulse Source Pulse Oximeter Intake Visit Reasons: 6 mth f/up Allergies No Known Allergies Allergy (Verified 05/22/24 09:26) Medication List - Last Reconciled 05/22/24 by ANOOP Monroy atorvastatin 80 mg PO DAILY benzonatate 100 mg PO BID PRN clopidogrel 75 mg PO DAILY dulaglutide (Trulicity) 0.75 mg (0.5 mL) subcut QWEEK insulin degludec (Tresiba FlexTouch U-100 insulin) 50 units (0.5 mL) subcut BEDTIME miscellaneous medical supply BD Pen Needle [place] U/F 32G X 4 MM once per day omeprazole 20 mg PO BID HPI HPI 6 mth f/up: Details: Washington is a 53-year-old male with past medical history of diabetes, obesity, CVA, cardiac evaluation for the presence of AFib completed and no AFib found. His eye ILR was removed last December. He now presents for follow-up. Today he reports that he has been doing very well since his last visit in November. He has no concerning symptoms. He has not had any new neurological symptoms of vision changes, speech disturbance, movement or sensory disturbances of his extremities. From his prior CVA he will have some slurred speech at times when he is tired. He denies having heart palpitations. No chest discomfort, no shortness of breath, presyncope, syncope, PND, orthopnea or edema. He reports good activity tolerance and is currently working 2 jobs. Takes all meds as directed. Continues on Plavix and statin. [facility], [facility] Medical History Dyslipidemia Migraines Obesity Type 2 diabetes mellitus with obesity CVA (cerebral vascular accident) Diabetes mellitus Surgical History H/O left knee surgery H/O hernia repair History of vasectomy Family History Father No problems noted. Mother No problems noted. Paternal Grandmother Diabetes Social History Household Members: Spouse Housing: House Alcohol intake: current Alcohol intake frequency: a few times a week Patient Tobacco Use Status: Never used Tobacco Tobacco use type: Cigarette e-Cigarette/Vaping Use: Never Used Second Hand Smoke Exposure: No service: No Current occupational status: unemployed Cognitive needs: No Hearing needs: No Vision needs: Yes (reading glasses) Review of Systems Const All systems reviewed & are unremarkable except as noted in HPI and below ENT Denies dizziness Card Denies chest pain, Denies chest pain at rest, Denies chest pain with activity, Denies rapid heart rate, Denies pedal edema, Denies edema, Denies leg edema, Denies lightheadedness, Denies palpitations, Denies dyspnea, Denies dyspnea on exertion and Denies orthopnea Resp Denies cough, Denies dyspnea and Denies dyspnea on exertion GI Denies hematochezia and Denies change in stool character Musc Denies abnormal gait, Denies limited range of motion, Denies muscle cramps, Denies muscle weakness, Denies numbness, Denies radiating pain into limb, Denies stiffness and Denies tingling Neuro Denies abnormal gait, Denies dizziness, Denies numbness and Denies tingling Endo Denies palpitations Physical Exam Vital Signs: Last Vital Signs Pulse 78 05/22/24 09:24 BP 138/70 05/22/24 09:24 BMI result Body Mass Index 32.7 Const General: cooperative, healthy appearing, comfortable and no acute distress Orientation/consciousness: patient oriented x3 Neck Neck: Yes normal visual inspection and Yes no JVD Resp Effort & Inspection: normal respiratory effort Auscultation: clear to auscultation bilaterally, no rales, no rhonchi and no wheezes Cardio Rate: regular rate Rhythm: regular rhythm Heart sounds: S1 normal heart sound present, S2 normal heart sound present, no murmurs and no rubs Neuro General: patient oriented x3 Extrem General: Yes normal to inspection, No no pedal edema and No calf tenderness Psych Appearance: grossly normal Mental Status: mental status grossly normal Speech and movement: Normal speech and movement present Assessment & Plan Assessment & Plan (1) CVA (cerebral vascular accident): Comment: 2018 Code(s): I63.9 - Cerebral infarction, unspecified Category: Medical Plan: History of CVA 2018. Then Evaluated at [facility] 07/2020 for difficulty speaking. CTA of the brain and neck reported as being okay. A 48 hour Holter monitor done at [facility] showed only sinus rhythm. MRI of the brain July 2020 showed chronic left frontal and parietal infarcts with acute left basal ganglia infarct. He has been followed by Neurology and remains on Plavix. He underwent a transesophageal echo on 08/13/21 showing EF 55-60%, no regional wall motion abnormalities, bubble study showing no shunt and no thrombus in the left atrial appendage. He had ILR in place from 11/04/2021 until 01/11/24 and no atrial fibrillation was found. Today he reports that he has been doing well with no recurrent CVAs. Pulse is very regular on exam. At this time he has had no cardiac findings that contribute to a source of emboli. Cardiology follow-up will be as needed. He is agreeable to this plan. (2) Implantable loop recorder present: Comment: 11/04/[address] Beckham, left chest -removed 01/11/2024 Code(s): Z95.818 - Presence of other cardiac implants and grafts Category: Medical Plan: As above (3) Embolic stroke: Code(s): I63.9 - Cerebral infarction, unspecified Category: Medical Plan: As above Plan Time spent on chart review, documentation, interview and assessment Coding Level of Care Code Est Pt Level 3 (38645) Complex EM visit Add On G2211 Diagnoses CVA (cerebral vascular accident) I63.9 Implantable loop recorder present Z95.818 Embolic stroke I63.9 Time Spent (min) 24
== END 2024-05-22 10:23 | disposition home or self-care (01) ==
PROVIDERS: PCP Internal Medicine; Visit Provider Nurse Practitioner Family
DX: I63.9 Cerebral infarction, unspecified (principal); Z95.818 Presence of other cardiac implants and grafts
CPT/HCPCS: 99213; G2211

== ENCOUNTER → 2024-05-22 09:03 | Outpatient (BNVA) | payer OTHER, SELFPAY | PROVIDERS: PCP Internal Medicine; Visit Provider Nurse Practitioner Family ==

== ENCOUNTER 2024-11-12 15:14 | Outpatient (AMB) | payer OTHER, SELFPAY ==
--- NOTE | 2024-11-12 15:16 | A.OFFPC_ITS ---
Vital Signs 11/12/24 15:17 Height 5 ft 8 in Weight 212 lb 8 oz BMI 32.3 BP 122/78 Blood Pressure Location Lt brachial Position Sitting Pulse 88 Pulse Source Pulse Oximeter Pulse Oximetry (%) 97 Oxygen Delivery Method Room Air Intake Visit Reasons: DAKOTA Dr Howell Ase Certified Technician Required: No Accompanied by: Self / Same As Patient Allergies No Known Allergies Allergy (Verified 11/12/24 15:43) Medication List - Last Reconciled 11/12/24 by FAN Aguiar atorvastatin 80 mg PO DAILY benzonatate 100 mg PO BID PRN clopidogrel 75 mg PO DAILY dulaglutide (Trulicity) 0.75 mg (0.5 mL) subcut QWEEK insulin degludec (Tresiba FlexTouch U-100 insulin) 50 units (0.5 mL) subcut BEDTIME miscellaneous medical supply BD Pen Needle [place] U/F 32G X 4 MM once per day omeprazole 20 mg PO BID Tobacco use date assessed: 11/12/24 Dental Screening Dental Screen Date: 11/12/24 Did you have a dental visit in the last 12 months?: Yes Did you have a dental problem in the last 6 months where you did not have access to dental care?: No Was dental information given to patient?: Patient has dentist HPI DAKOTA Dr Howell HPI Details a1c 10.7% no residual from stroke life eye droop at times. [facility] Medical History Dyslipidemia Migraines Obesity Type 2 diabetes mellitus with obesity CVA (cerebral vascular accident) Diabetes mellitus Surgical History H/O left knee surgery H/O hernia repair History of vasectomy Family History Father No problems noted. Mother No problems noted. Paternal Grandmother Diabetes Social History Household Members: Spouse Housing: House Alcohol intake: current Alcohol intake frequency: a few times a week Patient Tobacco Use Status: Never used Tobacco Tobacco use type: Cigarette e-Cigarette/Vaping Use: Never Used Second Hand Smoke Exposure: No service: No Current occupational status: unemployed Current occupational exposures/hazards: No Cognitive needs: No Hearing needs: No Vision needs: Yes (reading glasses) Questionnaire PHQ-9 Over the last 2 weeks, how often have you been bothered by any of the following problems? 1. Little interest or pleasure in doing things: not at all 2. Feeling down, depressed, or hopeless: not at all 3. Trouble falling or staying asleep, or sleeping too much: not at all 4. Feeling tired or having little energy: not at all 5. Poor appetite or overeating: not at all 6. Feeling bad about yourself - or that you are a failure or have let yourself or your family down: not at all 7. Trouble concentrating on things, such as reading the newspaper or watching television: not at all 8. Moving or speaking so slowly that other people could have noticed. Or the opposite - being so fidgety or restless that you have been moving around a lot more than usual: not at all 9. Thoughts that you would be better off or of hurting yourself in some way: not at all Total score: 0 Source: Developed by Drs. Vincenzo Velasquez, Sarah Lemus, Broderick Lundy and colleagues, with an educational garfield from [employer]. Thrive Questionnaire Date Thrive assessed: 11/12/24 I am a: Patient What is your living situation today?: I have a steady place to live Within the past 12 months, did the food you bought not last and you didn't have the money to get more?: I choose not to answer this question Within the past 12 months, did you worry whether your food would run out before you got money to buy more?: I choose not to answer this question Do you have trouble paying for medicines?: I choose not to answer this question Do you have trouble getting transportation to medical appointments?: No Do you have trouble paying your heating and electricity bill?: No Do you have trouble taking care of your child, family member or friend?: No Do you have trouble with day-to-day activities such as bathing, preparing meals, shopping, managing finances, etc.?: No Are you currently unemployed and looking for a job?: No Are you interested in more education?: No Please select the resources that you would like help with: None Currently or been in a relationship where the following occur: I choose not to answer THRIVE Score: 0 AUDIT C Alcohol Use Questionnaire (AUDIT-C) 1. How often do you have a drink containing alcohol?: 2-3 times a week 2. How many drinks containing alcohol do you have on a typical day when you are drinking?: 1 or 2 3. How often do you have six or more drinks on one occasion?: Never Total Score: 3 JONAH-7 AMB Questionnaire JONAH-7 Date JONAH - 7 assessed: 11/12/24 Feeling nervous, anxious, or on edge: 0 = Not at all Not being able to stop or control worryin = Not at all Worrying too much about different things: 0 = Not at all Trouble relaxin = Not at all Being so restless that it is hard to sit still: 0 = Not at all Becoming easily annoyed or irritable: 0 = Not at all Feeling afraid as if something awful might happen: 0 = Not at all Total JONAH-7 score (0-4 normal; 5-9 mild; 10-14 moderate; 15-21 severe): 0 Source: Developed by Drs. Vincenzo Velasquez, Sarah Lemus, Broderick Lundy and colleagues, with an educational garfield from [employer]. Physical exam (Primary Care) Vital Signs: Last Vital Signs Pulse 88 11/12/24 15:17 BP 122/78 11/12/24 15:17 Pulse Ox 97 11/12/24 15:17 Oxygen Delivery Method Room Air 11/12/24 15:17 BMI result Body Mass Index 32.3 Tobacco/Smoking Status: Tobacco use Status Tobacco use date assessed 11/12/24 11/12/24 15:22 Patient Tobacco Use Status Never used Tobacco 11/12/24 15:22 Tobacco use type Cigarette 11/12/24 15:22 e-Cigarette/Vaping Use Never Used 11/12/24 15:22 PHQ-9: PHQ-9 Score PHQ-9: Total score 0 11/12/24 15:44 Thrive Assessment: Date of Thrive Assessment Date Thrive assessed 11/12/24 11/12/24 15:22 Currently or been in a relationship where the following occur: I choose not to answer Results AMB Hemoglobin A1c AMB Hemoglobin A1c 10.7 % Last Edit by NADIYA Palomino on 11/12/24 15:43 Results Reviewed Results Reviewed: Laboratory Last Values Hgb A1c (Clinic) 10.7 % (4.0-6.0) H 11/12/24 15:28 Coding Assessment & Plan Assessment & Plan Orders: Orders AMB Hemoglobin A1c Today Z13.9 - Encounter for screening, unspecified Comprehensive [place]. Panel Fast 3 Months E11.69 - Type 2 diabetes mellitus with other specified complication, E11.9 - Type 2 diabetes mellitus without complications, E66.9 - Obesity, unspecified, K21.9 - Gastro-esophageal reflux disease without esophagitis, Z95.818 - Presence of other cardiac implants and grafts Lipid Panel 3 Months E11.69 - Type 2 diabetes mellitus with other specified complication, E11.9 - Type 2 diabetes mellitus without complications, E66.9 - Obesity, unspecified, K21.9 - Gastro-esophageal reflux disease without esophagitis, Z95.818 - Presence of other cardiac implants and grafts TSH reflex Free T4 3 Months E11.69 - Type 2 diabetes mellitus with other specified complication, E11.9 - Type 2 diabetes mellitus without complications, E66.9 - Obesity, unspecified, K21.9 - Gastro-esophageal reflux disease without esophagitis, Z95.818 - Presence of other cardiac implants and grafts Vitamin D 25-OH Total 3 Months E11.69 - Type 2 diabetes mellitus with other specified complication, E11.9 - Type 2 diabetes mellitus without complications, E66.9 - Obesity, unspecified, K21.9 - Gastro-esophageal reflux disease without esophagitis, Z95.818 - Presence of other cardiac implants and grafts Microalbumin, Random (w Creat) 3 Months E11.69 - Type 2 diabetes mellitus with other specified complication, E11.9 - Type 2 diabetes mellitus without complications, E66.9 - Obesity, unspecified, K21.9 - Gastro-esophageal reflux disease without esophagitis, Z95.818 - Presence of other cardiac implants and grafts Complete Blood Count Auto Diff 3 Months E11.69 - Type 2 diabetes mellitus with other specified complication, E11.9 - Type 2 diabetes mellitus without complications, E66.9 - Obesity, unspecified, K21.9 - Gastro-esophageal reflux disease without esophagitis, Z95.818 - Presence of other cardiac implants and grafts UA CC w/rflx Micro + Cult 3 Months E11.69 - Type 2 diabetes mellitus with other specified complication, E11.9 - Type 2 diabetes mellitus without complications, E66.9 - Obesity, unspecified, K21.9 - Gastro-esophageal reflux disease without esophagitis, Z95.818 - Presence of other cardiac implants and grafts Medications: New fenofibrate 54 mg PO DAILY 60 tabs 1RF dulaglutide (Trulicity) 1.5 mg (0.5 mL) subcut QWEEK 2 mL 1RF E11.65 - Type 2 diabetes mellitus with hyperglycemia Discontinued dulaglutide (Trulicity) Discontinued Reason: Duplicate 0.75 mg (0.5 mL) subcut QWEEK 2 mL 0RF
[2024-11-12 15:17] VITALS: BP 122/78; PULSE 88; O2SAT 97; BMI 32.3
--- OUTSIDE RECORDS SUMMARY | 2024-11-12 15:37 | XMS_ITS | Patient Health Record ---
[facility] [place] Address [address] [place] [address] Care Team Providers Care Veterinary Laboratory Diagnostician Name Role Phone Diego Howell MD Primary Care Provider Giovanny Denson Unavailable [phone] Allergies No Known Allergies Reason For Referral No Information Medications Medication SIG (Take, Route, Frequency, Duration) Notes Start Date End Date Status Physical Therapy . . . 2-3x/week; Durat ion: 3-4 weeks 01/14/2022 Active Night Splint AFO - L1930 as directed 01/14/2022 Active Trulicity 0.75 MG/0.5ML Subcutaneous; Du ration: 28 Active Atorvastatin Calcium 80 MG 1 tablet Oral ly Once a day; Duration: 30 day(s) Active Omeprazole 10 MG 1 capsule 30 minutes before morning meal Orally Once a day; Duration: 30 day(s) 12/15/2021 Active Clopidogrel Bisulfate 75 MG TAKE 1 TABLE T BY MOUTH EVERY DAY Oral; Duration: 90 Active Tresiba FlexTouch 100 UNIT/ML INJECT 50 UNITS UNDER THE SKIN EVERY NIGHT AT BEDTIME Subcutaneous; Duration: 30 Active Immunizations Vaccine Route Administration Date Status Comme nts COVID-19 Moderna Vaccine Unknown 08/26/2021 Administered Unsure of first 2 dates 2020 2020 Social History Tobacco Use: Social History Observation Description Date Details (start date - stop date) Former Smoker NA - NA Tobacco Use/Smoking Question Answer Notes Are you a: former smoker Alcohol Screen Question Answer Notes Did you have a drink containing alcohol in the p ast year? No Points 0 Interpretation Negative Tobacco use other than smoking: Question Answer Notes Are you an other tobacco user? No Plan Of Treatment Pending Test Test Name Order Date X ray : Foot, left 3V 01/14/2022 Insurance Providers Payer Name Payer Address Payer Phone Subscriber Number Group Number Insured Name Patient Relationship to Insured Coverage Start Date Coverage End Date Aet[employer] [address] [place] [phone] [id number] Washington Alves Self - patient is the insured Medical (General) History Medical History History ICD Code CAD (Cholesterol) covid-19 Diabetic type ll Headaches/Migraines High blood pressure Chicken pox Surgical History Surgery Date(Month/Year) knee surgery hernia vasectomy
--- OUTSIDE RECORDS SUMMARY | 2024-11-12 15:37 | XMS_ITS | Clinical Summary ---
[facility] Organization [facility] Address [address] [place] [address] Care Team Providers Care Tablet Technician Name Role Phone Diego Howell MD Primary Care Provider [phone] Social History Tobacco Use Types Packs/Day Years Used Date Smoking Tobacco: Never Assessed Sex and Gender Information Value Date Recorded Sex Assigned at Not on file Legal Sex Male 2:40 AM EST Gender Identity Not on file Sexual Orientation Not on file Plan of Treatment Health Maintenance Due Date Last Done Comments DTaP,Tdap,and Td Vaccines (1 - Tdap) 10/30/1991 Hepatitis B Vaccines (1 of 3 - 19+ 3-dose series) 10/30/1991 Pneumococcal Vaccine: 50+ Ye ars (1 of 1 - PCV) 2022 Zoster Vaccines (1 of 2) 2022 COVID-19 Vaccine (1 - 2023-2 5 season) 2024 Influenza Vaccine (Season Ended) 2025 HIB Vaccines Aged Out No longer eligi ble based on patient's age to complete this topic HPV Vaccines Aged Out No longer eligi ble based on patient's age to complete this topic Hepatitis A Vaccines Aged Out No long er eligible based on patient's age to complete this topic IPV Vaccines Aged Out No longer eligi ble based on patient's age to complete this topic MMR Vaccines Aged Out No longer eligi ble based on patient's age to complete this topic Meningococcal ACWY Vaccine Aged Out N o longer eligible based on patient's age to complete this topic Meningococcal B Vaccine Aged Out No l onger eligible based on patient's age to complete this topic Pneumococcal Vaccine: Pediat rics (0 to 5 Years) and At-Risk Patients (6 to 64 Years) Aged Out No longer eligible b ased on patient's age to complete this topic RSV Immunization Patients Un lesly 20 months Aged Out No longer eligible b ased on patient's age to complete this topic Varicella Vaccines Aged Out No longer eligible based on patient's age to complete this topic Care Teams Tablet Technician Relationship Specialty Start Date End Date Diego Howell MD [address] [place] [address] Drive [address] [place] [address] PCP - General Internal Medicine 08/21/20
== END 2024-11-12 16:18 | disposition home or self-care (01) ==
LOC: HO.HMCH 15:15
DX: Z13.9 Encounter for screening, unspecified (principal)

== ENCOUNTER → 2024-11-12 15:14 | Outpatient (BNVA) | payer OTHER, SELFPAY | DX: E11.65 Type 2 diabetes mellitus with hyperglycemia (principal); R74.8 Abnormal levels of other serum enzymes; E78.1 Pure hyperglyceridemia; K21.9 Gastro-esophageal reflux disease without esophagitis; E66.811 Obesity, class 1; E66.09 Other obesity due to excess calories; E78.2 Mixed hyperlipidemia; Z79.4 Long term (current) use of insulin; Z68.32 Body mass index [BMI] 32.0-32.9, adult; Z86.73 Personal history of transient ischemic attack (TIA), and cerebral infarction without residual deficits | CPT/HCPCS: 83036; 96127 ==

== ENCOUNTER 2025-01-26 07:07 | Outpatient (REF) | payer OTHER, SELFPAY ==
--- OUTSIDE RECORDS SUMMARY | 2025-01-26 07:09 | XMS_ITS | Patient Health Record ---
[facility] [place] Address [address] [place] [address] Care Team Providers Care Skimmer Scoop Operator Name Role Phone Diego Howell MD Primary Care Provider Giovanny Denson Unavailable [phone] Allergies No Known Allergies Reason For Referral [...] Date Coverage End Date Aet[employer] [address] [place] [phone] [id number] [place] Alves Self - patient is the insured Medical (General) History Medical History History ICD Code CAD (Cholesterol) covid-19 Diabetic type ll Headaches/Migraines High blood pressure Chicken pox Surgical History Surgery Date(Month/Year) knee surgery hernia vasectomy
--- OUTSIDE RECORDS SUMMARY | 2025-01-26 07:09 | XMS_ITS | Clinical Summary ---
[facility] Organization [facility] Address [address] [place] [address] Care Team Providers Care Telecommunications Linesworker Name Role Phone Diego Howell MD Primary Care Provider [phone] Social History Tobacco Use Types Packs/Day Years [...] 2022 Zoster Vaccines (1 of 2) 2022 Depression Screening 05/16/2024 COVID-19 Vaccine (1 - 2023-2 5 season) 2025 Influenza Vaccine (#1) 2025 HIB Vaccines Aged Out No longer [...] age to complete this topic Care Teams Telecommunications Linesworker Relationship Specialty Start Date End Date Diego Howell MD [address] [place] [address] PCP - General Internal Medicine 08/21/20
[2025-01-26 07:16] LABS: MANUAL DIFF FLAG NO
[2025-01-26 08:05] LABS: Hematocrit 40.1 % (42.0-52.0); Hemoglobin 13.0 g/dl (14.0-18.0); Imm Gran Abs Auto 0.07 X10*3/uL (0.00-0.03); Imm Gran Pct Auto 0.7 % (0.0-0.4); Lymphocytes Absolute Auto 3.4 X10*3/uL (1.2-4.9); Mean Corpuscular HGB Conc 32.4 g/dl (31.0-36.0); Mean Corpuscular Hemoglobin 25.7 pg (27.0-33.0); Mean Corpuscular Volume 79.4 fL (80.0-98.0); NRBC Abs Auto 0.000 X10*3/uL (0.0-0.012); NRBC Pct Auto 0.0 /100WBC (0.0-0.2); Platelet Count 324 X10*3/uL (160-400); Red Blood Count 5.05 X10*6/uL (4.60-5.80); White Blood Count 10.5 X10*3/uL (4.8-10.8)
[2025-01-26 08:21] LABS: Appearance Urine Clear; Glucose Urine UA Negative (Negative); PH 8.0 (5.0-9.0); Specific Gravity - Urine 1.020 (1.005-1.025)
[2025-01-26 08:44] LABS: Alanine Aminotransferase 19 U/L (0-40); Albumin Level 4.1 g/dL (3.5-5.0); Alkaline Phosphatase 130 U/L (39-117); Anion Gap 11 (12-20); Aspartate Amino Transferase 21 U/L (5-37); Blood Urea Nitrogen 18 mg/dL (9-16); Calcium 8.8 mg/dL (8.4-10.2); Carbon Dioxide 26 mmol/L (22-29); Chloride 109 mmol/L (96-108); Cholesterol 102 mg/dL (<200); Estimated Glomerular Filt Rate > 60; Gamma Glutamyl Transpeptidase 21 U/L (11-51); HDL Cholesterol 26 mg/dL (>40); Potassium 4.0 mmol/L (3.3-5.1); Sodium 142 mmol/L (135-145); Total Protein 7.1 g/dL (6.5-8.0); Triglycerides 129 mg/dL (<150)
[2025-01-26 09:20] LABS: Microalbum/Creatinine Ratio Ur 4.9 ug/mg cr (<30)
== END 2025-01-26 07:08 | disposition home or self-care (01) ==
LOC: HO.LAB 07:07
DX: E11.69 Type 2 diabetes mellitus with other specified complication (principal); E66.9 Obesity, unspecified; K21.9 Gastro-esophageal reflux disease without esophagitis; R74.8 Abnormal levels of other serum enzymes; Z95.818 Presence of other cardiac implants and grafts
CPT/HCPCS: 36415; 80053; 80061; 81003; 82043; 82306; 82570; 82977; 84443; 85025

== ENCOUNTER 2025-02-12 08:11 | Outpatient (AMB) | payer OTHER, SELFPAY ==
--- NOTE | 2025-02-12 08:21 | A.OFFPC_ITS ---
Vital Signs 02/12/25 08:24 Height 5 ft 8 in Weight 202 lb BMI 30.7 BP 110/68 Blood Pressure Location Lt brachial Position Sitting Pulse 76 Pulse Source Pulse Oximeter Temp 97.1 F Temp Source Temporal Artery Scan Pulse Oximetry (%) 96 Oxygen Delivery Method Room Air Intake Visit Reasons: 3 month follow up Intake Note: Patient is here to follow up on DM, HLD, Obesity. Resident Care Aide Required: No Arabic Translator: Present Accompanied by: Spouse Allergies No Known Allergies Allergy (Verified 02/12/25 12:43) Medication List - Last Reconciled 02/12/25 by FAN Aguiar atorvastatin 80 mg PO DAILY benzonatate 100 mg PO BID PRN clopidogrel 75 mg PO DAILY fenofibrate 54 mg PO DAILY insulin degludec (Tresiba FlexTouch U-100 insulin) 50 units (0.5 mL) subcut BEDTIME miscellaneous medical supply BD Pen Needle [place] U/F 32G X 4 MM once per day omeprazole 20 mg PO BID Tobacco use date assessed: 02/12/25 Dental Screening Dental Screen Date: 11/12/24 HPI 3 month follow up HPI Details The patient is a 54-year-old male presenting for management of chronic conditions including diabetes, dyslipidemia, and anemia, as well as for preventative care measures. The patient has a history of anemia, which is suspected to be iron deficiency- related, as indicated by low MCV. The anemia is possibly exacerbated by chronic disease, given the patient's diabetes diagnosis. There is a plan to check iron levels to confirm the cause of anemia before starting any supplementation. The patient's diabetes management has been challenging due to insurance issues affecting medication access, specifically Trulicity. Despite this, the patient has been adhering to dietary modifications, resulting in a weight loss of 10 pounds and a decrease in HbA1c to 9.2%. The patient is awaiting re-enrollment in a different insurance plan to resume medication, which is expected to further improve glycemic control. Dyslipidemia is being managed with medication, resulting in improved cholesterol levels, although HDL remains low. The patient is advised to take omega-3 supplements to increase HDL levels. The patient has a vitamin D deficiency, which is not critical but noted to be on the lower side. A vitamin D supplement is recommended, vit D3 50 mcg was ordered and the patient was made aware that this might not be covered by his insurance. Preventative care includes a recommendation for colon cancer screening using a stool test, as the patient has not yet undergone a colonoscopy. [facility] Medical History Hyperlipidemia Dyslipidemia Migraines Obesity Type 2 diabetes mellitus with obesity CVA (cerebral vascular accident) Diabetes mellitus Surgical History H/O left knee surgery H/O hernia repair History of vasectomy Family History Father No problems noted. Mother No problems noted. Paternal Grandmother Diabetes Social History Household Members: Spouse Housing: House Alcohol intake: current Alcohol intake frequency: a few times a week Patient Tobacco Use Status: Never used Tobacco Tobacco use type: Cigarette e-Cigarette/Vaping Use: Never Used Second Hand Smoke Exposure: No service: No Current occupational status: unemployed Current occupational exposures/hazards: No Cognitive needs: No Hearing needs: No Vision needs: Yes (reading glasses) Questionnaire Thrive Questionnaire Date Thrive assessed: 11/12/24 I am a: Patient What is your living situation today?: I have a steady place to live Within the past 12 months, did the food you bought not last and you didn't have the money to get more?: I choose not to answer this question Within the past 12 months, did you worry whether your food would run out before you got money to buy more?: I choose not to answer this question Do you have trouble paying for medicines?: I choose not to answer this question Do you have trouble getting transportation to medical appointments?: No Do you have trouble paying your heating and electricity bill?: No Do you have trouble taking care of your child, family member or friend?: No Do you have trouble with day-to-day activities such as bathing, preparing meals, shopping, managing finances, etc.?: No Are you currently unemployed and looking for a job?: No Are you interested in more education?: No Please select the resources that you would like help with: None Currently or been in a relationship where the following occur: I choose not to answer THRIVE Score: 0 JONAH-7 AMB Questionnaire JONAH-7 Date JONAH - 7 assessed: 11/12/24 Source: Developed by Drs. Vincenzo Velasquez, Sarah Lemus, Broderick Lundy and colleagues, with an educational garfield from [employer]. Review of Systems Const Denies body aches, Denies chills, Denies fever(s), Denies headache(s) and Denies poor appetite Eyes Reports no additional complaints ENT Denies dysphagia, Denies dizziness, Denies headache(s) and Denies odynophagia Card Denies chest pain, Denies syncope, Denies edema, Denies irregular heart rhythm, Denies lightheadedness and Denies dyspnea Resp Denies cough and Denies dyspnea GI Denies abdominal pain, Denies constipation, Denies dysphagia, Denies diarrhea, Denies nausea, Denies odynophagia and Denies vomiting Reports no additional complaints Musc Reports no additional complaints and Denies abnormal gait Skin/Breast Reports system reviewed and no additional complaints, except as documented Neuro Denies abnormal gait, Denies dizziness, Denies syncope and Denies headache(s) Psych Reports no additional complaints Physical exam (Primary Care) Vital Signs: Last Vital Signs Temp 97.1 F 02/12/25 08:24 Pulse 76 02/12/25 08:24 BP 110/68 02/12/25 08:24 Pulse Ox 96 02/12/25 08:24 Oxygen Delivery Method Room Air 02/12/25 08:24 BMI result Body Mass Index 30.7 Tobacco/Smoking Status: Tobacco use Status Tobacco use date assessed 02/12/25 02/12/25 08:32 Patient Tobacco Use Status Never used Tobacco 02/12/25 08:22 Tobacco use type Cigarette 02/12/25 08:22 e-Cigarette/Vaping Use Never Used 02/12/25 08:22 Thrive Assessment: Date of Thrive Assessment Date Thrive assessed 11/12/24 02/12/25 08:22 Currently or been in a relationship where the following occur: I choose not to answer Const General: cooperative, healthy appearing, comfortable and no acute distress Orientation/consciousness: patient oriented x3 HENMT Head: Yes normocephalic Ears: hearing grossly normal bilaterally General nose exam: Normal external nose present Eyes General: appearance normal, both eyes and all related structures Conjunctivae: conjunctivae normal Neck Neck: Yes full ROM and Yes no lymphadenopathy Resp Effort & Inspection: normal respiratory effort Auscultation: clear to auscultation bilaterally, no crackles, no rales, no rhonchi and no wheezes Cardio Rate: regular rate Rhythm: regular rhythm Skin General skin exam: no rashes or lesions noted Neuro General: patient oriented x3 Gait exam (Neuro): Normal gait present Extrem General: Yes normal to inspection, Yes full ROM and No edema Psych Affect: normal affect Attitude: cooperative Insight: Good insight present (Psych) Judgement: Good judgement present (Psych) Results AMB Hemoglobin A1c AMB Hemoglobin A1c 9.2 % Last Edit by NADIYA Agarwal on 02/12/25 08:38 Results Reviewed Results Reviewed: Laboratory Last Values Hgb A1c (Clinic) 9.2 % (4.0-6.0) H 02/12/25 08:22 Laboratory Tests 01/26/25 02/12/25 07:15 08:22 WBC 10.5 RBC 5.05 Hgb 13.0 L Hct 40.1 L MCV 79.4 L MCH 25.7 L MCHC 32.4 RDW 13.6 Plt Count 324 Sodium 142 Potassium 4.0 Chloride 109 H Carbon Dioxide 26 Anion Gap 11 L BUN 18 H Creatinine 1.21 Estimated GFR > 60 Fasting Glucose 137 H Hgb A1c (Clinic) 9.2 H Calcium 8.8 Total Bilirubin 0.3 GGT 21 AST 21 ALT 19 Alkaline Phosphatase 130 H Total Protein 7.1 Albumin 4.1 Triglycerides 129 Cholesterol 102 LDL Cholesterol, Calc 51 HDL Cholesterol 26 L 25-OH Vitamin D Total 24.4 L TSH 1.49 Urine Color Yellow Urine Appearance Clear Urine pH 8.0 Ur Specific [place] 1.020 Urine Protein Negative Urine Glucose (UA) Negative Urine Ketones Negative Urine Blood Negative Urine Nitrite Negative Ur Leukocyte Esterase Negative Urine Creatinine 140.81 Urine Microalbumin 7.0 Microalb/Creat Ratio 4.9 Coding Level of Care Code Est Pt Level 4 (47224) Diagnoses Uncontrolled type 2 diabetes mellitus with hyperglycemia E11.65 Diabetes mellitus type: type 2 Elevated alkaline phosphatase level R74.8 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 CVA mechanism: embolism Precerebral and cerebral artery: basilar artery Chronic GERD K21.9 Class 1 obesity due to excess calories with serious comorbidity and body mass index (BMI) of 32.0 to 32.9 in adult E66.811; E66.09; Z68.32 Body mass index: BMI 32.0-32.9 Obesity classification: adult class 1 (BMI 30 - 34.9) Obesity type: due to excess calories Serious obesity comorbidity presence: with serious comorbidity Mixed hyperlipidemia E78.2 Hyperlipidemia type: mixed hyperlipidemia Anemia, unspecified type D64.9 Anemia type: unspecified type Vitamin D deficiency E55.9 Time Spent (min) 38 Assessment & Plan Assessment & Plan (1) Uncontrolled diabetes mellitus with hyperglycemia: Code(s): E11.65 - Type 2 diabetes mellitus with hyperglycemia Category: Medical Qualifiers: Diabetes mellitus type: type 2 Qualified Code(s): E11.65 - Type 2 diabetes mellitus with hyperglycemia Plan: The patient had a A1c done in office was 9.2% decreased from 10.7% -goal is less than 7% Dulaglutide was increased from 0.75 to 1.5 mg. However, he was not able to get this due to the insurance constraints. He is planning on changing his insurance plan. Reinforced low sugar/carbohydrate diet Continue Tresiba flex touch U-100 insulin 50 units subQ at bedtime. We will recheck A1c in 3 months (2) Elevated alkaline phosphatase level: Code(s): R74.8 - Abnormal levels of other serum enzymes Category: Medical Plan: Elevated alkaline phosphatase 130 it waa 184 04/07/2024. GGT level is normal. However, the alkaline phosphatatase is trending down, will continue to monitor for now. We will repeat CMP in 3 months (3) CVA (cerebral vascular accident): Comment: 2018 Code(s): I63.9 - Cerebral infarction, unspecified Category: Medical Qualifiers: CVA mechanism: embolism Precerebral and cerebral artery: basilar artery Qualified Code(s): I63.12 - 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 artery Plan: Status post CVA in 2019. MRI of the brain showed chronic left frontal and parietal infarcts with left basal ganglia infarct. The patient has been followed by Neurology who place the patient on Plavix. The patient had a transesophageal echo in 08/13/2021 that shows EF of 55-60%. An ILR was placed by Cardiology on 11/04/2021 until 01/11/2024, no AFib was found. Continue on atorvastatin 80 mg daily, Plavix 75 mg daily (4) Chronic GERD: Code(s): K21.9 - Gastro-esophageal reflux disease without esophagitis Category: Medical Plan: Reinforced dietary restrictions Continue omeprazole 20 mg b.i.d. (5) Obesity: Code(s): E66.9 - Obesity, unspecified Category: Medical Qualifiers: Body mass index: BMI 32.0-32.9 Obesity classification: adult class 1 (BMI 30 - 34.9) Obesity type: due to excess calories Serious obesity comorbidity presence: with serious comorbidity Qualified Code(s): E66.811 - Obesity, class 1; E66.09 - Other obesity due to excess calories; Z68.32 - Body mass index [BMI] 32.0-32.9, adult Plan: Encouraged to exercise for at least 30 minutes a day/5 days a week Healthy eating discussed. Encouraged to eat fruits/vegetables, protein- fish/baked chicken, and to avoid salty/fried foods, sweets, caffeine and carboh ydrates. Encouraged to increase water intake 6-8 glasses a day (6) Hyperlipidemia: Code(s): E78.5 - Hyperlipidemia, unspecified Category: Medical Qualifiers: Hyperlipidemia type: mixed hyperlipidemia Qualified Code(s): E78.2 - Mixed hyperlipidemia Plan: Triglycerides 129, total cholesterol 102, LDL 51, HDL 26 Continue atorvastatin 80 mg and add fenofibrate 54 mg daily Start [place] 3 supplements We will recheck lipid panel in 3 months (7) Anemia: Code(s): D64.9 - Anemia, unspecified Category: Medical Qualifiers: Anemia type: unspecified type Qualified Code(s): D64.9 - Anemia, unspecified Plan: Microcytic anemia-The plan includes checking iron levels to determine if the anemia is due to iron deficiency or chronic disease. Iron supplementation will be considered based on the results to avoid potential liver complications from excess iron. (8) Vitamin D deficiency: Code(s): E55.9 - Vitamin D deficiency, unspecified Category: Medical Plan: Vitamin-D 50 mcg daily ordered. Informed patient that this might not be covered by insurance and may need to get it OTC Orders: Orders IRON PROFILE 3 Months E11.69 - Type 2 diabetes mellitus with other specified complication, E11.9 - Type 2 diabetes mellitus without complications, E66.09 - Other obesity due to excess calories, E66.811 - Obesity, class 1, E66.9 - Obesity, unspecified, E78.2 - Mixed hyperlipidemia, I63.12 - 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 artery, K21.9 - Gastro-esophageal reflux disease without esophagitis, M54.50 - Low back pain, unspecified, R74.8 - Abnormal levels of other serum enzymes, Z68.32 - Body mass index [BMI] 32.0-32.9, adult TSH reflex Free T4 3 Months E11.69 - Type 2 diabetes mellitus with other specified complication, E11.9 - Type 2 diabetes mellitus without complications, E66.09 - Other obesity due to excess calories, E66.811 - Obesity, class 1, E66.9 - Obesity, unspecified, E78.2 - Mixed hyperlipidemia, I63.12 - 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 artery, K21.9 - Gastro-esophageal reflux disease without esophagitis, M54.50 - Low back pain, unspecified, R74.8 - Abnormal levels of other serum enzymes, Z68.32 - Body mass index [BMI] 32.0- 32.9, adult Vitamin D 25-OH Total 3 Months E11.69 - Type 2 diabetes mellitus with other specified complication, E11.9 - Type 2 diabetes mellitus without complications, E66.09 - Other obesity due to excess calories, E66.811 - Obesity, class 1, E66.9 - Obesity, unspecified, E78.2 - Mixed hyperlipidemia, I63.12 - 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 artery, K21.9 - Gastro-esophageal reflux disease without esophagitis, M54.50 - Low back pain, unspecified, R74.8 - Abnormal levels of other serum enzymes, Z68.32 - Body mass index [BMI] 32.0- 32.9, adult Lipid Panel 3 Months E11.69 - Type 2 diabetes mellitus with other specified complication, E11.9 - Type 2 diabetes mellitus without complications, E66.09 - Other obesity due to excess calories, E66.811 - Obesity, class 1, E66.9 - Obesity, unspecified, E78.2 - Mixed hyperlipidemia, I63.12 - 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 artery, K21.9 - Gastro-esophageal reflux disease without esophagitis, M54.50 - Low back pain, unspecified, R74.8 - Abnormal levels of other serum enzymes, Z68.32 - Body mass index [BMI] 32.0-32.9, adult Hemoglobin A1c 3 Months E11.69 - Type 2 diabetes mellitus with other specified complication, E66.9 - Obesity, unspecified AMB Hemoglobin A1c Today E11.65 - Type 2 diabetes mellitus with hyperglycemia, E11.69 - Type 2 diabetes mellitus with other specified complication, E66.9 - Obesity, unspecified Complete Blood Count Auto Diff 3 Months E11.69 - Type 2 diabetes mellitus with other specified complication, E11.9 - Type 2 diabetes mellitus without complications, E66.09 - Other obesity due to excess calories, E66.811 - Obesity, class 1, E66.9 - Obesity, unspecified, E78.2 - Mixed hyperlipidemia, I63.12 - 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 artery, K21.9 - Gastro-esophageal reflux disease without esophagitis, M54.50 - Low back pain, unspecified, R74.8 - Abnormal levels of other serum enzymes, Z68.32 - Body mass index [BMI] 32.0- 32.9, adult Comprehensive [place]. Panel Fast 3 Months E11.69 - Type 2 diabetes mellitus with other specified complication, E11.9 - Type 2 diabetes mellitus without complications, E66.09 - Other obesity due to excess calories, E66.811 - Obesity, class 1, E66.9 - Obesity, unspecified, E78.2 - Mixed hyperlipidemia, I63.12 - 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 artery, K21.9 - Gastro-esophageal reflux disease without esophagitis, M54.50 - Low back pain, unspecified, R74.8 - Abnormal levels of other serum enzymes, Z68.32 - Body mass index [BMI] 32.0- 32.9, adult UA CC w/rflx Micro + Cult 3 Months E11.69 - Type 2 diabetes mellitus with other specified complication, E11.9 - Type 2 diabetes mellitus without complications, E66.09 - Other obesity due to excess calories, E66.811 - Obesity, class 1, E66.9 - Obesity, unspecified, E78.2 - Mixed hyperlipidemia, I63.12 - 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 artery, K21.9 - Gastro-esophageal reflux disease without esophagitis, M54.50 - Low back pain, unspecified, R74.8 - Abnormal levels of other serum enzymes, Z68.32 - Body mass index [BMI] 32.0- 32.9, adult Referrals Cologuard Test Z12.11 - Encounter for screening for malignant neoplasm of colon, Z12.12 - Encounter for screening for malignant neoplasm of rectum Medications: New cholecalciferol (vitamin D3) 50 mcg PO DAILY 90 caps 3RF
[2025-02-12 08:24] VITALS: BP 110/68; PULSE 76; TEMP 36.2; O2SAT 96; BMI 30.7
--- OUTSIDE RECORDS SUMMARY | 2025-02-12 08:28 | XMS_ITS | Clinical Summary ---
[facility] Organization [facility] Address [address] [place] [address] Care Team Providers Care Rn Anesthesiology Name Role Phone Diego Howell MD Primary Care Provider [phone] Social History Tobacco Use Types Packs/Day Years [...] age to complete this topic Care Teams Rn Anesthesiology Relationship Specialty Start Date End Date Diego Howell MD [address] [place] [address] PCP - General Internal Medicine 08/21/20
--- OUTSIDE RECORDS SUMMARY | 2025-02-12 08:28 | XMS_ITS | Patient Health Record ---
[facility] [place] Address [address] [place] [address] Care Team Providers Care Emergency Room Physician Name Role Phone Diego Howell MD Primary Care Provider Giovanny Denson Unavailable [phone] Allergies No Known Allergies Reason For Referral [...] Date Coverage End Date [employer] [address] [place] [phone] [id number] [place] Self - patient is the insured Medical (General) History Medical History History ICD Code CAD (Cholesterol) covid-19 Diabetic type ll Headaches/Migraines High blood pressure Chicken pox Surgical History Surgery Date(Month/Year) knee surgery hernia vasectomy
== END 2025-02-12 09:05 | disposition home or self-care (01) ==
LOC: HO.HMCH 08:12
DX: E11.65 Type 2 diabetes mellitus with hyperglycemia (principal); R74.8 Abnormal levels of other serum enzymes; I63.12 Cerebral infarction due to embolism of basilar artery; K21.9 Gastro-esophageal reflux disease without esophagitis; E66.811 Obesity, class 1; E66.09 Other obesity due to excess calories; Z68.32 Body mass index [BMI] 32.0-32.9, adult; E78.2 Mixed hyperlipidemia; D64.9 Anemia, unspecified; E55.9 Vitamin D deficiency, unspecified; E11.69 Type 2 diabetes mellitus with other specified complication; E66.9 Obesity, unspecified

== ENCOUNTER → 2025-02-12 08:11 | Outpatient (BNVA) | payer OTHER, SELFPAY | DX: E11.65 Type 2 diabetes mellitus with hyperglycemia (principal); E78.5 Hyperlipidemia, unspecified; J45.909 Unspecified asthma, uncomplicated; E55.9 Vitamin D deficiency, unspecified; R74.8 Abnormal levels of other serum enzymes; K21.9 Gastro-esophageal reflux disease without esophagitis; E66.09 Other obesity due to excess calories; E78.2 Mixed hyperlipidemia; D64.9 Anemia, unspecified; Z68.32 Body mass index [BMI] 32.0-32.9, adult; Z86.73 Personal history of transient ischemic attack (TIA), and cerebral infarction without residual deficits | CPT/HCPCS: 83036 ==

== ENCOUNTER 2025-03-30 07:28 | Outpatient (REF) | payer BC, OTHER, SELFPAY ==
--- OUTSIDE RECORDS SUMMARY | 2025-03-30 07:31 | XMS_ITS | Patient Health Record ---
[facility] [place] Address [address] [place] [address] Care Team Providers Care Pump Servicer Helper Name Role Phone Diego Howell MD Primary Care Provider Giovanny Lal Unavailable [phone] Allergies No Known Allergies Reason For Referral [...] Date Coverage End Date [employer] [address] [place] [phone] [id number] [place] Self - patient is the insured Medical (General) History Medical History History ICD Code CAD (Cholesterol) covid-19 Diabetic type ll Headaches/Migraines High blood pressure Chicken pox Surgical History Surgery Date(Month/Year) knee surgery hernia vasectomy
--- OUTSIDE RECORDS SUMMARY | 2025-03-30 07:32 | XMS_ITS | Clinical Summary ---
[facility] Organization [facility] Address [address] [place] [address] Care Team Providers Care Gas Pumping Station Supervisor Name Role Phone Diego Howell MD Primary Care Provider [phone] Social History Tobacco Use Types Packs/Day Years [...] Depression Screening 05/16/2024 COVID-19 Vaccine (1 - 2024-2 6 season) 2025 Influenza Vaccine (#1) 2025 RSV Immunization Adult Patie nts (1 - 1-dose 75+ series) 10/30/2047 HIB Vaccines Aged Out No longer eligi [...] age to complete this topic Care Teams Gas Pumping Station Supervisor Relationship Specialty Start Date End Date Diego Howell MD [address] [place] [address] PCP - General Internal Medicine 08/21/20
[2025-03-30 07:43] LABS: MANUAL DIFF FLAG NO
[2025-03-30 08:19] LABS: Hematocrit 41.9 % (42.0-52.0); Hemoglobin 13.3 g/dl (14.0-18.0); Imm Gran Abs Auto 0.05 X10*3/uL (0.00-0.03); Imm Gran Pct Auto 0.5 % (0.0-0.4); Lymphocytes Absolute Auto 3.5 X10*3/uL (1.2-4.9); Mean Corpuscular HGB Conc 31.7 g/dl (31.0-36.0); Mean Corpuscular Hemoglobin 25.4 pg (27.0-33.0); Mean Corpuscular Volume 80.0 fL (80.0-98.0); NRBC Abs Auto 0.000 X10*3/uL (0.0-0.012); NRBC Pct Auto 0.0 /100WBC (0.0-0.2); Platelet Count 304 X10*3/uL (160-400); Red Blood Count 5.24 X10*6/uL (4.60-5.80); White Blood Count 10.6 X10*3/uL (4.8-10.8)
[2025-03-30 08:27] LABS: Appearance Urine Clear; Glucose Urine UA Negative (Negative); PH 6.0 (5.0-9.0); Specific Gravity - Urine 1.025 (1.005-1.025)
[2025-03-30 09:00] LABS: Alanine Aminotransferase 23 U/L (0-40); Albumin Level 4.1 g/dL (3.5-5.0); Alkaline Phosphatase 135 U/L (39-117); Anion Gap 13 (12-20); Aspartate Amino Transferase 21 U/L (5-37); Blood Urea Nitrogen 16 mg/dL (9-16); Calcium 9.5 mg/dL (8.4-10.2); Carbon Dioxide 23 mmol/L (22-29); Chloride 110 mmol/L (96-108); Cholesterol 137 mg/dL (<200); Estimated Glomerular Filt Rate > 60; HDL Cholesterol 24 mg/dL (>40); Iron 45 mcg/dL (45-160); Percent Iron Saturation 15 % (15-50); Potassium 3.9 mmol/L (3.3-5.1); Sodium 142 mmol/L (135-145); Total Iron Binding Capacity 305 mcg/dL (228-428); Total Protein 7.0 g/dL (6.5-8.0); Triglycerides 347 mg/dL (<150); Unsaturated Iron Binding 260 ug/dL
== END 2025-03-30 07:29 | disposition home or self-care (01) ==
LOC: HO.LAB 07:28
DX: E78.2 Mixed hyperlipidemia (principal); K21.9 Gastro-esophageal reflux disease without esophagitis; E11.69 Type 2 diabetes mellitus with other specified complication; I63.12 Cerebral infarction due to embolism of basilar artery; R74.8 Abnormal levels of other serum enzymes; E66.811 Obesity, class 1; M54.50 Low back pain, unspecified; Z68.32 Body mass index [BMI] 32.0-32.9, adult
CPT/HCPCS: 36415; 80053; 80061; 81003; 82306; 83036; 83540; 84443; 85025

== ENCOUNTER 2025-04-05 14:47 | Outpatient (AMB) | payer BC, OTHER, SELFPAY ==
--- NOTE | 2025-04-05 14:53 | MHC.PC.OV ---
Vital Signs 04/05/25 14:55 Height 5 ft 8 in Weight 206 lb 2 oz BMI 31.3 BP 102/68 Blood Pressure Location Lt brachial Position Sitting Respiration 18 Pulse 63 Pulse Source Pulse Oximeter Temp Source Temporal Artery Scan Pulse Oximetry (%) 96 Oxygen Delivery Method Room Air Intake Visit Reasons: annual exam Paper Spooler Required: No Accompanied by: Self / Same As Patient Allergies No Known Allergies Allergy (Verified 04/05/25 15:12) Medication List - Last Reconciled 04/05/25 by FAN Aguiar atorvastatin 80 mg PO DAILY benzonatate 100 mg PO BID PRN cholecalciferol (vitamin D3) 50 mcg PO DAILY clopidogrel 75 mg PO DAILY fenofibrate 54 mg PO DAILY insulin degludec (Tresiba FlexTouch U-100 insulin) 50 units (0.5 mL) subcut BEDTIME miscellaneous medical supply BD Pen Needle [place] U/F 32G X 4 MM once per day omeprazole 20 mg PO BID Tobacco use date assessed: 04/05/25 Dental Screening Dental Screen Date: 04/05/25 Did you have a dental visit in the last 12 months?: Yes Did you have a dental problem in the last 6 months where you did not have access to dental care?: No Was dental information given to patient?: Patient has dentist HPI annual exam HPI Details Dentist: up to date Eye:up to date Snellen: Right: Left: Corrected vision: yes, reader STI screening: Colonoscopy: cologuard was positive and he is going to get a colonoscopy Pap Smer: PHQ-9: Flu: usually not do, but this year COVID: x2 Tdap: declined Diet: Regular diet Exercise:no PFSH Medical History Hyperlipidemia Dyslipidemia Migraines Obesity Type 2 diabetes mellitus with obesity CVA (cerebral vascular accident) Diabetes mellitus Surgical History H/O left knee surgery H/O hernia repair History of vasectomy Family History Father No problems noted. Mother No problems noted. Paternal Grandmother Diabetes Social History Household Members: Spouse Housing: House Alcohol intake: current Alcohol intake frequency: a few times a week Patient Tobacco Use Status: Never used Tobacco Tobacco use type: Cigarette e-Cigarette/Vaping Use: Never Used Second Hand Smoke Exposure: No service: No Current occupational status: unemployed Current occupational exposures/hazards: No Cognitive needs: No Hearing needs: No Vision needs: Yes (reading glasses) Questionnaire PHQ-9 Over the last 2 weeks, how often have you been bothered by any of the following problems? 1. Little interest or pleasure in doing things: not at all 2. Feeling down, depressed, or hopeless: not at all 3. Trouble falling or staying asleep, or sleeping too much: not at all 4. Feeling tired or having little energy: not at all 5. Poor appetite or overeating: not at all 6. Feeling bad about yourself - or that you are a failure or have let yourself or your family down: not at all 7. Trouble concentrating on things, such as reading the newspaper or watching television: not at all 8. Moving or speaking so slowly that other people could have noticed. Or the opposite - being so fidgety or restless that you have been moving around a lot more than usual: not at all 9. Thoughts that you would be better off or of hurting yourself in some way: not at all Total score: 0 Depression Screening Interpretation: Negative Depression Screening Done: Yes Source: Developed by Drs. Vincenzo Velasquez, Sarah Lemus, Broderick Lundy and colleagues, with an educational garfield from [employer]. Thrive Questionnaire Date Thrive assessed: 04/05/25 I am a: Patient What is your living situation today?: I have a steady place to live Within the past 12 months, did the food you bought not last and you didn't have the money to get more?: I choose not to answer this question Within the past 12 months, did you worry whether your food would run out before you got money to buy more?: I choose not to answer this question Do you have trouble paying for medicines?: I choose not to answer this question Do you have trouble getting transportation to medical appointments?: No Do you have trouble paying your heating and electricity bill?: No Do you have trouble taking care of your child, family member or friend?: No Do you have trouble with day-to-day activities such as bathing, preparing meals, shopping, managing finances, etc.?: No Are you currently unemployed and looking for a job?: No Are you interested in more education?: No Please select the resources that you would like help with: None Currently or been in a relationship where the following occur: I choose not to answer THRIVE Score: 0 JONAH-7 AMB Questionnaire JONAH-7 Date JONAH - 7 assessed: 11/12/24 Feeling nervous, anxious, or on edge: 0 = Not at all Not being able to stop or control worryin = Not at all Worrying too much about different things: 0 = Not at all Trouble relaxin = Not at all Being so restless that it is hard to sit still: 0 = Not at all Becoming easily annoyed or irritable: 0 = Not at all Feeling afraid as if something awful might happen: 0 = Not at all Total JONAH-7 score (0-4 normal; 5-9 mild; 10-14 moderate; 15-21 severe): 0 Source: Developed by Drs. Vincenzo Velasquez, Sarah Lemus, Broderick Lundy and colleagues, with an educational garfield from [employer]. Review of Systems Const Denies body aches, Denies chills, Denies fever(s), Denies headache(s) and Denies poor appetite Eyes Reports no additional complaints ENT Denies dysphagia, Denies dizziness, Denies headache(s) and Denies odynophagia Card Denies chest pain, Denies syncope, Denies edema, Denies irregular heart rhythm, Denies lightheadedness and Denies dyspnea Resp Denies cough and Denies dyspnea GI Denies abdominal pain, Denies constipation, Denies dysphagia, Denies diarrhea, Denies nausea, Denies odynophagia and Denies vomiting Reports no additional complaints Musc Reports no additional complaints and Denies abnormal gait Skin/Breast Reports system reviewed and no additional complaints, except as documented Neuro Denies abnormal gait, Denies dizziness, Denies syncope and Denies headache(s) Psych Reports no additional complaints Physical exam (Primary Care) Vital Signs: Last Vital Signs Pulse 63 04/05/25 14:55 Resp 18 04/05/25 14:55 BP 102/68 04/05/25 14:55 Pulse Ox 96 04/05/25 14:55 Oxygen Delivery Method Room Air 04/05/25 14:55 BMI result Body Mass Index 31.3 Tobacco/Smoking Status: Tobacco use Status Tobacco use date assessed 04/05/25 04/05/25 14:58 Patient Tobacco Use Status Never used Tobacco 04/05/25 14:58 Tobacco use type Cigarette 04/05/25 14:58 e-Cigarette/Vaping Use Never Used 04/05/25 14:58 PHQ-9: PHQ-9 Score PHQ-9: Total score 0 04/05/25 15:14 Depression Screening Interpretation: Negative Thrive Assessment: Date of Thrive Assessment Date Thrive assessed 04/05/25 04/05/25 14:58 Currently or been in a relationship where the following occur: I choose not to answer Const General: cooperative, healthy appearing, comfortable and no acute distress Orientation/consciousness: patient oriented x3 HENMT Head: Yes normocephalic Ears: hearing grossly normal bilaterally General nose exam: Normal external nose present Eyes General: appearance normal, both eyes and all related structures Conjunctivae: conjunctivae normal Neck Neck: Yes full ROM and Yes no lymphadenopathy Resp Effort & Inspection: normal respiratory effort Auscultation: clear to auscultation bilaterally, no crackles, no rales, no rhonchi and no wheezes Cardio Rate: regular rate Rhythm: regular rhythm Skin General skin exam: no rashes or lesions noted Neuro General: patient oriented x3 Gait exam (Neuro): Normal gait present Deep tendon reflexes (DTR's): Right triceps reflex intensity grade: 2+, Left triceps reflex intensity grade: 2+, Rt Biceps (C5, C6): 2+, Left biceps reflex intensity grade: 2+, Right brachioradialis reflex intensity grade: 2+, Left brachioradialis reflex intensity grade: 2+, Right patellar reflex intensity grade: 2+ and Left patellar reflex intensity grade: 2+ Extrem General: Yes normal to inspection, Yes full ROM and No edema Psych Affect: normal affect Attitude: cooperative Insight: Good insight present (Psych) Judgement: Good judgement present (Psych) Results Reviewed Results Reviewed: Laboratory Tests 03/30/25 07:42 WBC 10.6 RBC 5.24 Hgb 13.3 L Hct 41.9 L MCV 80.0 MCH 25.4 L MCHC 31.7 RDW 13.1 Plt Count 304 MPV 9.6 Sodium 142 Potassium 3.9 Chloride 110 H Carbon Dioxide 23 Anion Gap 13 BUN 16 Creatinine 0.94 Estimated GFR > 60 Fasting Glucose 216 H Estimat Average Glucose 232 Hemoglobin A1c % 9.7 H Calcium 9.5 D Iron 45 TIBC 305 % Saturation 15 Unsat Iron Binding 260 Total Bilirubin 0.3 AST 21 ALT 23 Alkaline Phosphatase 135 H Total Protein 7.0 Albumin 4.1 Triglycerides 347 H Cholesterol 137 LDL Cholesterol, Calc 44 HDL Cholesterol 24 L 25-OH Vitamin D Total 25.0 L TSH 1.60 Urine Color Yellow Urine Appearance Clear Urine pH 6.0 Ur Specific [place] 1.025 Urine Protein Negative Urine Glucose (UA) Negative Urine Ketones Negative Urine Blood Negative Urine Nitrite Negative Ur Leukocyte Esterase Negative Coding Level of Care Code Est Pt Prev Care 40-64y(63719) Diagnoses Physical exam Z00.00 Uncontrolled type 2 diabetes mellitus with hyperglycemia E11.65 Diabetes mellitus type: type 2 Elevated alkaline phosphatase level R74.8 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 CVA mechanism: embolism Precerebral and cerebral artery: basilar artery Chronic GERD K21.9 Class 1 obesity due to excess calories with serious comorbidity and body mass index (BMI) of 32.0 to 32.9 in adult E66.811; E66.09; Z68.32 Obesity type: due to excess calories Obesity classification: adult class 1 (BMI 30 - 34.9) Serious obesity comorbidity presence: with serious comorbidity Body mass index: BMI 32.0-32.9 Mixed hyperlipidemia E78.2 Hyperlipidemia type: mixed hyperlipidemia Anemia, unspecified type D64.9 Anemia type: unspecified type Vitamin D deficiency E55.9 Time Spent (min) 36 Assessment & Plan Assessment & Plan (1) Physical exam: Code(s): Z00.00 - Encounter for general adult medical examination without abnormal findings Category: Medical Plan: Preventative guidelines and recent labs reviewed with the patient. The patient had a positive Cologuard, GI referral was placed for colonoscopy (2) Uncontrolled diabetes mellitus with hyperglycemia: Code(s): E11.65 - Type 2 diabetes mellitus with hyperglycemia Category: Medical Qualifiers: Diabetes mellitus type: type 2 Qualified Code(s): E11.65 - Type 2 diabetes mellitus with hyperglycemia Plan: The patient had a A1c done in office was 9.7% increased from 9.6% -goal is less than 7% Dulaglutide was increased from 0.75 to 1.5 mg. However, he was not able to get this due to the insurance constraints. He is planning on changing his insurance plan. Reinforced low sugar/carbohydrate diet Increase Tresiba flex touch U-100 insulin 54 units subQ at bedtime. We will recheck A1c in 3 months (3) Elevated alkaline phosphatase level: Code(s): R74.8 - Abnormal levels of other serum enzymes Category: Medical Plan: Elevated alkaline phosphatase 135, was prior 130 and was 184 04/07/2024. GGT level is normal. Patient isn't complaining of any joint pain, no bone deformity noticeable. Patient had a positive Cologuard and was referred for colonoscopy, considering bowel involvement. We will wait for colonoscopy results. (4) CVA (cerebral vascular accident): Comment: 2018 Code(s): I63.9 - Cerebral infarction, unspecified Category: Medical Qualifiers: CVA mechanism: embolism Precerebral and cerebral artery: basilar artery Qualified Code(s): I63.12 - 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 artery Plan: Status post CVA in 2019. MRI of the brain showed chronic left frontal and parietal infarcts with left basal ganglia infarct. The patient has been followed by Neurology who place the patient on Plavix. The patient had a transesophageal echo in 08/13/2021 that shows EF of 55-60%. An ILR was placed by Cardiology on 11/04/2021 until 01/11/2024, no AFib was found. Continue on atorvastatin 80 mg daily, Plavix 75 mg daily (5) Chronic GERD: Code(s): K21.9 - Gastro-esophageal reflux disease without esophagitis Category: Medical Plan: Reinforced dietary restrictions Continue omeprazole 20 mg b.i.d. (6) Obesity: Code(s): E66.9 - Obesity, unspecified Category: Medical Qualifiers: Obesity type: due to excess calories Obesity classification: adult class 1 (BMI 30 - 34.9) Serious obesity comorbidity presence: with serious comorbidity Body mass index: BMI 32.0-32.9 Qualified Code(s): E66.811 - Obesity, class 1; E66.09 - Other obesity due to excess calories; Z68.32 - Body mass index [BMI] 32.0-32.9, adult Plan: Encouraged to exercise for at least 30 minutes a day/5 days a week Healthy eating discussed. Encouraged to eat fruits/vegetables, protein-fish/baked chicken, and to avoid salty/fried foods, sweets, caffeine and carbohydrates. Encouraged to increase water intake 6-8 glasses a day (7) Hyperlipidemia: Code(s): E78.5 - Hyperlipidemia, unspecified Category: Medical Qualifiers: Hyperlipidemia type: mixed hyperlipidemia Qualified Code(s): E78.2 - Mixed hyperlipidemia Plan: Triglycerides 347, total cholesterol 137, LDL 44, HDL 24. Patient triglycerides was for 471, then decreased to 129, now back up to 347- indication dietary fluctuation. Reinforced low-cholesterol diet and activity as tolerated Continue fenofibrate 54 mg daily, atorvastatin 80 mg daily, encouraged fish oil supplement Recheck lipid panel in 3 months (8) Anemia: Code(s): D64.9 - Anemia, unspecified Category: Medical Qualifiers: Anemia type: unspecified type Qualified Code(s): D64.9 - Anemia, unspecified Plan: H&H 13.3/41.9 Encouraged iron rich foods will monitor cbc (9) Vitamin D deficiency: Code(s): E55.9 - Vitamin D deficiency, unspecified Category: Medical Plan: Vitamin-D 50 mcg daily was ordered. Denies compliance Encouraged the patient to start taking medication Orders: Orders Complete Blood Count Auto Diff 3 Months E11.65 - Type 2 diabetes mellitus with hyperglycemia, E11.69 - Type 2 diabetes mellitus with other specified complication, E11.9 - Type 2 diabetes mellitus without complications, E55.9 - Vitamin D deficiency, unspecified, E66.09 - Other obesity due to excess calories, E66.811 - Obesity, class 1, E66.9 - Obesity, unspecified, E78.2 - Mixed hyperlipidemia, I63.12 - 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 artery, K21.9 - Gastro-esophageal reflux disease without esophagitis, Z68.32 - Body mass index [BMI] 32.0-32.9, adult, Z95.818 - Presence of other cardiac implants and grafts Lipid Panel 3 Months E11.65 - Type 2 diabetes mellitus with hyperglycemia, E11.69 - Type 2 diabetes mellitus with other specified complication, E11.9 - Type 2 diabetes mellitus without complications, E55.9 - Vitamin D deficiency, unspecified, E66.09 - Other obesity due to excess calories, E66.811 - Obesity, class 1, E66.9 - Obesity, unspecified, E78.2 - Mixed hyperlipidemia, I63.12 - 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 artery, K21.9 - Gastro-esophageal reflux disease without esophagitis, Z68.32 - Body mass index [BMI] 32.0-32.9, adult, Z95.818 - Presence of other cardiac implants and grafts TSH reflex Free T4 3 Months E11.65 - Type 2 diabetes mellitus with hyperglycemia, E11.69 - Type 2 diabetes mellitus with other specified complication, E11.9 - Type 2 diabetes mellitus without complications, E55.9 - Vitamin D deficiency, unspecified, E66.09 - Other obesity due to excess calories, E66.811 - Obesity, class 1, E66.9 - Obesity, unspecified, E78.2 - Mixed hyperlipidemia, I63.12 - 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 artery, K21.9 - Gastro-esophageal reflux disease without esophagitis, Z68.32 - Body mass index [BMI] 32.0-32.9, adult, Z95.818 - Presence of other cardiac implants and grafts UA CC w/rflx Micro + Cult 3 Months E11.65 - Type 2 diabetes mellitus with hyperglycemia, E11.69 - Type 2 diabetes mellitus with other specified complication, E11.9 - Type 2 diabetes mellitus without complications, E55.9 - Vitamin D deficiency, unspecified, E66.09 - Other obesity due to excess calories, E66.811 - Obesity, class 1, E66.9 - Obesity, unspecified, E78.2 - Mixed hyperlipidemia, I63.12 - 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 artery, K21.9 - Gastro-esophageal reflux disease without esophagitis, Z68.32 - Body mass index [BMI] 32.0-32.9, adult, Z95.818 - Presence of other cardiac implants and grafts Vitamin D 25-OH Total 3 Months E11.65 - Type 2 diabetes mellitus with hyperglycemia, E11.69 - Type 2 diabetes mellitus with other specified complication, E11.9 - Type 2 diabetes mellitus without complications, E55.9 - Vitamin D deficiency, unspecified, E66.09 - Other obesity due to excess calories, E66.811 - Obesity, class 1, E66.9 - Obesity, unspecified, E78.2 - Mixed hyperlipidemia, I63.12 - 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 Panel Fast 3 Months E11.65 - Type 2 diabetes mellitus with hyperglycemia, E11.69 - Type 2 diabetes mellitus with other specified complication, E11.9 - Type 2 diabetes mellitus without complications, E55.9 - Vitamin D deficiency, unspecified, E66.09 - Other obesity due to excess calories, E66.811 - Obesity, class 1, E66.9 - Obesity, unspecified, E78.2 - Mixed hyperlipidemia, I63.12 - 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 artery, K21.9 - Gastro-esophageal reflux disease without esophagitis, Z68.32 - Body mass index [BMI] 32.0-32.9, adult, Z95.818 - Presence of other cardiac implants and grafts Hemoglobin A1c 3 Months E11.65 - Type 2 diabetes mellitus with hyperglycemia, E11.69 - Type 2 diabetes mellitus with other specified complication, E11.9 - Type 2 diabetes mellitus without complications, E55.9 - Vitamin D deficiency, unspecified, E66.09 - Other obesity due to excess calories, E66.811 - Obesity, class 1, E66.9 - Obesity, unspecified, E78.2 - Mixed hyperlipidemia, I63.12 - 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 artery, K21.9 - Gastro-esophageal reflux disease without esophagitis, Z68.32 - Body mass index [BMI] 32.0-32.9, adult, Z95.818 - Presence of other cardiac implants and grafts Medications: Changed From insulin degludec (Tresiba FlexTouch U-100 insulin) 50 units (0.5 mL) subcut BEDTIME 48 mL 0RF E11.9 - Type 2 diabetes mellitus without complications To insulin degludec (Tresiba FlexTouch U-100 insulin) 54 units (0.54 mL) subcut BEDTIME 48 mL 3RF E11.9 - Type 2 diabetes mellitus without complications
[2025-04-05 14:55] VITALS: BP 102/68; PULSE 63; RESP 18; O2SAT 96; BMI 31.3
--- OUTSIDE RECORDS SUMMARY | 2025-04-05 15:05 | XMS_ITS | Clinical Summary ---
Author Organization [facility] Address [address] [place] [address] Care Team Providers Care [employer] Name Role Phone Diego Howell MD Primary Care Provider [phone] Social History Tobacco Use Types Packs/Day Years [...] age to complete this topic Care Teams [employer] Relationship Specialty Start Date End Date Diego Howell MD [address] [place] [address] PCP - General Internal Medicine 08/21/20
--- OUTSIDE RECORDS SUMMARY | 2025-04-05 15:05 | XMS_ITS | Patient Health Record ---
[facility] [place] Address [address] [place] [address] Care Team Providers Care Social Services Specialist Name Role Phone Diego Howell MD Primary Care Provider Giovanny Lal Unavailable [phone] Allergies No Known Allergies Reason For Referral [...] Date Coverage End Date [employer] [address] [place] [phone] [id number] [place] Self - patient is the insured Medical (General) History Medical History History ICD Code CAD (Cholesterol) covid-19 Diabetic type ll Headaches/Migraines High blood pressure Chicken pox Surgical History Surgery Date(Month/Year) knee surgery hernia vasectomy
== END 2025-04-05 15:44 | disposition home or self-care (01) ==
DX: Z00.00 Encounter for general adult medical examination without abnormal findings (principal); E11.65 Type 2 diabetes mellitus with hyperglycemia; R74.8 Abnormal levels of other serum enzymes; I63.12 Cerebral infarction due to embolism of basilar artery; K21.9 Gastro-esophageal reflux disease without esophagitis; E66.811 Obesity, class 1; E66.09 Other obesity due to excess calories; Z68.32 Body mass index [BMI] 32.0-32.9, adult; E78.2 Mixed hyperlipidemia; D64.9 Anemia, unspecified; E55.9 Vitamin D deficiency, unspecified